=== PATIENT | female | born 1955 | race African-American/Black ===

== ENCOUNTER 2017-02-27 17:00 | Emergency (ER) | payer OTHER ==
[2017-02-27 17:04] VITALS: BP 149/96; PULSE 63; TEMP 98.8; BMI 33.5
--- NOTE | 2017-02-27 17:29 | PDOC ---
History of Present Illness - General Chief Complaint: Chest Pain Stated Complaint: SENT BY PCP Time Seen by Provider: 02/27/17 17:22 History Source: Patient - History of Present Illness Presenting Symptoms: Chest Pain Timing/Duration: reports: constant Severity/Quality: reports: moderate Location: reports: other (L chest) Chest Pain Radiation: reports: no radiation Past History - Past Medical History Allergies/Adverse Reactions: Allergies Allergy/AdvReac Type Severity Reaction Status Date / Time No Known Allergies Allergy Verified 02/27/17 17:04 Home Medications: Ambulatory Orders Naproxen [Naprosyn -] 500 mg PO BID PRN #30 tablet 02/18/16 Tramadol HCl [Ultram] 50 mg PO TID PRN #10 tablet MDD 3 02/18/16 Thyroid Disease: Yes Other medical history: NONE - Surgical History Appendectomy: Yes - Immunization History Immunization Up to Date: Yes - Psycho/Social/Smoking Cessation Hx Anxiety: No Suicidal Ideation: No Smoking Status: No Smoking History: Never smoked Have you smoked in the past 12 months: No Number of Cigarettes Smoked Daily: 0 Hx Alcohol Use: No Drug/Substance Use Hx: No Substance Use Type: None Review of Systems - Review of Systems Constitutional: No: Chills, Fever Respiratory: No: Cough, Shortness of Breath Cardiac (ROS): Yes: Chest Pain. No: Lightheadedness, Palpitations, Syncope *Physical Exam - Vital Signs Last Vital Signs Temp Pulse Resp BP Pulse Ox 98.8 F 63 20 149/96 99 02/27/17 17:01 02/27/17 17:01 02/27/17 17:01 02/27/17 17:01 02/27/17 17:01 - Physical Exam General Appearance: Yes: Appropriately Dressed. No: Apparent Distress HEENT: positive: Normal Voice Neck: positive: Supple Respiratory/Chest: positive: Lungs Clear, Normal Breath Sounds. negative: Respiratory Distress Cardiovascular: positive: Regular Rate, S1, S2 Gastrointestinal/Abdominal: positive: Soft. negative: Tender Integumentary: positive: Dry, Warm Neurologic: positive: Fully Oriented, Alert, Normal Mood/Affect Heart Score/ECG Review - History History: Slightly suspicious - Electrocardiogram EKG: Non specific repolarization disturbance - Age Age: 45-65 - Risk Factors Risk Factors Heart Score: Yes Hx Obesity Based on the list above the patient has:: 1-2 risk factors - Troponin Troponin: </= normal limit - Score Heart Score - Total: 3 - ECG Intrepretation Comment:: 02/27/17 17:35 NSR @ 63 bpm w/ no significant ST/T wave changes, intervals and axis wnl ED Treatment Course - LABORATORY CBC & Chemistry Diagram: 02/27/17 17:56 02/27/17 17:56 - ADDITIONAL ORDERS Additional order review: Laboratory Results 02/27/17 02/27/17 02/27/17 17:56 17:28 17:28 Sodium 140 Potassium 3.9 Chloride 104 Carbon Dioxide 27 Anion Gap 9 BUN 13 Creatinine 0.9 Creat Clearance w eGFR > 60 Random Glucose 90 Calcium 9.5 Total Bilirubin 0.7 D AST 27 ALT 24 Alkaline Phosphatase 122 H D Creatine Kinase 508 H Troponin I < 0.02 B-Natriuretic Peptide 59.51 Total Protein 7.6 Albumin 4.1 Urine Color Yellow Urine Appearance Clear Urine pH 5.0 Urine Protein Negative Urine Glucose (UA) Negative Urine Ketones Negative Urine Blood Negative Urine Nitrite Negative Urine Bilirubin Negative Urine Urobilinogen Negative Ur Leukocyte Esterase Negative 02/27/17 17:56 RBC 4.54 MCV 89.2 MCHC 33.1 RDW 13.3 MPV 8.9 Neutrophils % 47.2 Lymphocytes % 39.2 Monocytes % 4.9 Eosinophils % 8.0 H Basophils % 0.7 - RADIOLOGY Radiology Studies Ordered: Category Date Time Status CHEST X-RAY PORTABLE* [RAD] Stat Radiology 02/27/17 17:06 Taken - Medications Given in the ED: ED Medications Discontinued Medications Generic Name Dose Route Start Last Admin Trade Name Freq PRN Reason Stop Dose Admin Aspirin 325 mg 02/27/17 17:36 02/27/17 17:54 Asa - PO 02/27/17 17:37 325 mg ONCE ONE Administration Medical Decision Making - Medical Decision Making 02/27/17 17:27 61-year-old female, denies any past medical history, non-smoker, presents with chest pain. Patient reports left-sided, non-radiating chest pain x several days, described as heaviness, constant, with an intensity of 8 out of 10, and no exacerbating or alleviating factors. No shortness of breath, diaphoresis, nausea, vomiting, palpitations, or leg pain or swelling. No history of similar pain. No obvious risk factors for DVT/ PE. Went to [facility] today and had a normal EKG per patient, but told to come to ED to rule out ACS. Patient's last stress test was in 2012 and was negative See exam CP Not great story for ACS No RF for DVT/PE Unlikely dissection -ekg -cxr -labs -dispo pending 02/27/17 17:34 02/27/17 17:37 02/27/17 18:14 Case d/w ED attg, states given low heart score, if labs neg (will get 1 trop given duration of sxs), ok to discharge pt w/ PMD f/u 02/27/17 18:31 Labs unremarkable. Pt remains stable and chest pain free at this time. Dc w/ pmd f/u 02/27/17 18:33 *DC/Admit/Observation/Transfer Diagnosis at time of Disposition: Chest pain Qualifiers: Chest pain type: unspecified Qualified Code(s): R07.9 - Chest pain, unspecified - Discharge Dispostion Condition at time of disposition: Improved - Referrals Referrals: Shola Clark MD [Primary Care Provider] - - Patient Instructions Printed Discharge Instructions: DI for Atypical Chest Pain Additional Instructions: Your ekg and labs were normal today. Follow up with your PMD for further evaluation Return to ED for worsening of symptoms
[2017-02-27] MEDS ORDERED: ASPIRIN 325 MG TABLET PO ONE (17:36)
[2017-02-27] MEDS ORDERED: ASPIRIN 325 MG TABLET ONE (17:50)
[2017-02-27 17:51] LABS: URINE APPEARANCE CLEAR; URINE BILIRUBIN NEGATIVE (NEGATIVE); URINE BLOOD NEGATIVE (NEGATIVE); URINE COLOR YELLOW; URINE GLUCOSE (UA) NEGATIVE (NEGATIVE); URINE KETONE NEGATIVE (NEGATIVE); URINE LEUK ESTERASE NEGATIVE (NEGATIVE); URINE NITRITE NEGATIVE (NEGATIVE); URINE PROTEIN NEGATIVE (NEGATIVE); URINE UROBILINOGEN NEGATIVE mg/dL (0.2-1.0)
[2017-02-27 18:05] LABS: BASOPHIL 0.7 % (0-2.0); MCH 29.5 pg (25.7-33.7); MCHC 33.1 g/dl (32.0-36.0); MEAN CELL VOLUME 89.2 fl (80-96); MEAN PLT VOLUME 8.9 fl (7.5-11.1); NEUTROPHILS 47.2 % (42.8-82.8); PLATELET COUNT 212 K/MM3 (134-434); RDW 13.3 % (11.6-15.6); WHITE BLOOD COUNT 5.2 K/mm3 (4.0-10.0)
[2017-02-27 18:26] LABS: ALBUMIN 4.1 g/dl (3.4-5.0); ANION GAP 9 (8-16); BILIRUBIN,TOTAL 0.7 mg/dL (0.2-1.0); CALCIUM 9.5 mg/dL (8.5-10.1); CO2 27 mmol/L (21-32); CREATININE 0.9 mg/dL (0.55-1.02); GLUCOSE,RANDOM 90 mg/dL (74-106); SGOT/AST 27 U/L (15-37); SGPT/ALT 24 U/L (12-78); TOT PROT 7.6 g/dl (6.4-8.2)
[2017-02-27 18:28] LABS: ALK PHOS 122 U/L (45-117); CPK 508 IU/L (26-192); TROPONIN I < 0.02 ng/ml (0.00-0.05)
--- NOTE | 2017-02-28 12:15 | EKG ---
Test Reason : Blood Pressure : / mmHG Vent. Rate : 063 BPM Atrial Rate : 063 BPM P-R Int : 174 ms QRS Dur : 080 ms QT Int : 406 ms P-R-T Axes : 042 010 034 degrees QTc Int : 415 ms NORMAL SINUS RHYTHM CANNOT RULE OUT INFERIOR INFARCT , AGE UNDETERMINED ABNORMAL ECG WHEN COMPARED WITH ECG OF 12-FEB-2013 04:18, NONSPECIFIC T WAVE ABNORMALITY, IMPROVED IN ANTERIOR LEADS Confirmed by ZULLY CRUZ MD ([id number]) on 02/28/2017 12:15:10 PM Referred By: Confirmed By:ZULLY CRUZ MD
== END 2017-02-27 18:35 | disposition home or self-care (01) ==
LOC: JER 17:00
DX: R07.9 Chest pain, unspecified (principal)
CPT/HCPCS: 36415; 71010-TC; 80053; 81003; 83880; 84484; 85025; 93005; 93010; 99282-25

== ENCOUNTER 2017-05-07 22:53 | Emergency (ER) | payer OTHER ==
[2017-05-07 23:05] VITALS: BP 157/82; PULSE 86; TEMP 98.7; BMI 33.5
--- NOTE | 2017-05-08 00:08 | PDOC ---
History of Present Illness <Fer Guerrero - Last Filed: 05/08/17 01:56> - General History Source: Patient Exam Limitations: No Limitations - History of Present Illness Initial Comments: 05/08/17 04:16 The patient is a 61 year old female with no significant past medical history who presents to the ED with complaints of lightheadedness for 3 days. The patient reports intermittent lightheaded that is worsened when she stands and walks. It lasts for several seconds before resolving. Patient describes her lightheadedness like she is on a boat and off balance. She also reports left ear ringing associated with presents symptoms. She states her blood pressure has been high in the past 3 days, around 140/80. Patient reports recent cold like symptoms and took advil cold and sinus with relief. Denies nausea, vomiting, or diarrhea. Denies vision changes. Denies dysuria or changes in urinary output. Denies shortness of breath, chest pain or palpitations. Denies any other symptoms. <Sadia Irby - Last Filed: 05/08/17 04:17> - General Chief Complaint: Lightheaded Stated Complaint: DIZZINESS Time Seen by Provider: 05/07/17 23:48 Past History - Past Medical History Thyroid Disease: Yes Other medical history: Pt denies - Surgical History Appendectomy: Yes - Immunization History Immunization Up to Date: Yes - Suicide/Smoking/Psychosocial Hx Smoking Status: No Smoking History: Never smoked Have you smoked in the past 12 months: No Number of Cigarettes Smoked Daily: 0 Information on smoking cessation initiated: No Hx Alcohol Use: No Drug/Substance Use Hx: No Substance Use Type: None <Fer Guerrero - Last Filed: 05/08/17 01:56> <Sadia Irby - Last Filed: 05/08/17 04:17> - Past Medical History Allergies/Adverse Reactions: Allergies Allergy/AdvReac Type Severity Reaction Status Date / Time No Known Allergies Allergy Verified 05/07/17 23:02 Home Medications: Ambulatory Orders NK [No Known Home Medication] 05/08/17 Review of Systems - Review of Systems Able to Perform ROS?: Yes Comments:: 05/08/17 04:16 CONSTITUTIONAL: No reported: Fever, Chills, Diaphoresis, Generalized Weakness, Malaise, Loss of Appetite HEENT: + ringing in ear No reported: Rhinorrhea, Nasal Congestion, Throat Pain, Throat Swelling, Difficulty Swallowing, Mouth Swelling, Ear Pain, Eye Pain, Visual Changes CARDIOVASCULAR: + high blood pressure No reported: Chest Pain, Syncope, Palpitations, Irregular Heart Rate, Lightheadedness, Peripheral Edema RESPIRATORY: No reported: Cough, Shortness of Breath, SOB with Exertion, Orthopnea, Wheezing , Stridor, Hemoptysis GASTROINTESTINAL: No reported: Abdominal pain, Abdominal Distension, Nausea, Vomiting, Diarrhea, Constipation, Melena, Hematochezia GENITOURINARY: No reported: Dysuria, Frequency, Urgency, Hesitancy, Flank Pain, Genital Pain MUSCULOSKELETAL: No reported: Myalgia, Arthralgia, Joint Swelling, Back pain, Neck Pain SKIN: No reported: Rash, Itching, Pallor HEMEATOLOGIC/IMMUNOLOGIC: No reported: Easy Bleeding, Easy Bruising, Lymphadenopathy, Frequent infections ENDOCRINE: No reported: Unexplained Weight Gain, Unexplained Weight Loss, Heat Intolerance , Cold Intolerance NEUROLOGIC: + lightheadedness No reported: Headache, Focal Weakness, Paresthesias, Vertigo, unsteady Gait, Seizure, Mental Status Changes, Incontinence PSYCHIATRIC: No reported: Anxiety, Depression All Other Systems: Reviewed and Negative <Sadia Irby - Last Filed: 05/08/17 04:17> *Physical Exam - Vital Signs Last Vital Signs Temp Pulse Resp BP Pulse Ox 98.7 F 86 18 157/82 100 05/07/17 23:02 05/07/17 23:02 05/07/17 23:02 05/07/17 23:02 05/07/17 23:02 <Fer Guerrero - Last Filed: 05/08/17 01:56> - Vital Signs Last Vital Signs Temp Pulse Resp BP Pulse Ox 98.7 F 86 18 157/82 100 05/07/17 23:02 05/07/17 23:02 05/07/17 23:02 05/07/17 23:02 05/07/17 23:02 - Physical Exam Comments: 05/08/17 04:17 GENERAL: The patient is awake, alert, and fully oriented, Nontoxic - in no acute distress. HEAD: Normocephalic, atraumatic. EYES: extraocular movements intact, sclera anicteric, conjunctiva clear. No nystagmus. ENT: Normal voice, Moist mucous membranes. NECK: Normal range of motion, supple LUNGS: Breath sounds equal, clear to auscultation bilaterally. No wheezes, no rhonchi, no rales. HEART: Regular rate and rhythm, without murmur, rub or gallop. ABDOMEN: Soft, nontender, normoactive bowel sounds. No guarding, no rebound.No CVA tenderness EXTREMITIES: Normal range of motion, no edema. No clubbing or cyanosis. No cords, erythema, or tenderness. NEUROLOGICAL: No facial assymetry, Normal speech. Normal rapid alternating movement. Normal finger to nose. PSYCH: Normal mood, normal affect. SKIN: Warm, Dry, normal turgor, <Sadia Irby - Last Filed: 05/08/17 04:17> Heart Score/ECG Review - ECG Impressions Comment:: 05/08/17 01:54 Twelve-lead EKG was performed and reviewed by me. There is normal sinus rhythm with a normal rate. rate of 63 The axis is normal. pvs present <Fer Guerrero - Last Filed: 05/08/17 01:56> ED Treatment Course - LABORATORY CBC & Chemistry Diagram: 05/08/17 00:40 05/08/17 00:40 <Fer Guerrero - Last Filed: 05/08/17 01:56> - LABORATORY CBC & Chemistry Diagram: 05/08/17 00:40 05/08/17 00:40 - ADDITIONAL ORDERS Additional order review: Laboratory Results 05/08/17 00:40 Sodium 143 Potassium 4.2 Chloride 109 H Carbon Dioxide 24 Anion Gap 10 BUN 16 D Creatinine 0.8 Creat Clearance w eGFR > 60 Random Glucose 97 Calcium 9.0 Total Bilirubin 0.4 D AST 27 ALT 23 Alkaline Phosphatase 110 Total Protein 7.2 Albumin 3.7 05/08/17 00:40 RBC 4.30 MCV 90.8 MCHC 33.0 RDW 13.5 MPV 9.0 Neutrophils % 50.3 Lymphocytes % 34.8 Monocytes % 6.1 Eosinophils % 7.8 H Basophils % 1.0 - Medications Given in the ED: ED Medications Discontinued Medications Generic Name Dose Route Start Last Admin Trade Name Freq PRN Reason Stop Dose Admin Sodium Chloride 1,000 mls @ 1,000 mls/hr 05/08/17 00:29 05/08/17 00:58 Normal Saline - IV 05/08/17 01:28 1,000 mls/hr .Q1H ONE Administration <Sadia Irby - Last Filed: 05/08/17 04:17> Medical Decision Making - Medical Decision Making 05/08/17 00:54 61y F no pmhx presents with complaint of dizziness. Pt endorses intermittent episodes of dizziness typically when she is standing up or when she is walking, lasting for seconds. no associated vision changes, numbness/tingling/weakness, n /v, palpitations, cp, sob. on exam the pt is well appearing no distress, unremarkable exam including negative cerebellar findings and normal neuro exam. negative aarti hallpike differential includes possible anemia, metoblic derangement, arrythmia, peripheral vertigo, dehydration will ck labs will give fluids will reassess A portion of this note was documented by scribe services under my direction. I have reviewed the details of the note, within reason, and agree with the documentation with the following case summary and management plan written by me 05/08/17 01:53 labs reviewed and is unremarakble pt feeling improved apm sypmtomatic will dc the pt with pmd fu I discussed the physical exam findings, ancillary test results and final diagnoses with the patient. I answered all of the patient's questions. The patient was satisfied with the care received and felt comfortable with the discharge plan and treatment plan. The patient will call their primary care physician within 24 hours to arrange follow-up and will return to the Emergency Department with any new, persistent or worsening symptoms. <Fer Guerrero - Last Filed: 05/08/17 01:56> *DC/Admit/Observation/Transfer - Discharge Dispostion Admit: No <Fer Guerrero - Last Filed: 05/08/17 01:56> - Attestations Scribe Attestion: 05/08/17 04:17 Documentation prepared by Sadia Irby, acting as medical attendant for Fer Guerrero MD <Sadia Irby - Last Filed: 05/08/17 04:17> Diagnosis at time of Disposition: Lightheaded - Discharge Dispostion Disposition: HOME Condition at time of disposition: Improved - Referrals Referrals: Gil Clark MD [Primary Care Provider] - - Patient Instructions Printed Discharge Instructions: DI for Muscle Weakness Additional Instructions: Return to the emergency department immediately with ANY new, persistent or worsening symptoms. You MUST call and follow up with your doctor tomorrow for further evaluation of your symptoms. Results were discussed with you. Please make sure your doctor reviews the results of your emergency evaluation. If you had any xrays during your visit, it was read preliminarily by myself, a Radiologist will review it and if there are any additional findings we will call you. Print Language: CITIZEN OF [place]
[2017-05-08] MEDS ORDERED: SODIUM CHLORIDE 1,000 ML IV ONE (00:29)
[2017-05-08 00:52] LABS: EOSINOPHIL 7.8 % (0-4.5); MEAN CELL VOLUME 90.8 fl (80-96); NEUTROPHILS 50.3 % (42.8-82.8); PLATELET COUNT 235 K/MM3 (134-434); RDW 13.5 % (11.6-15.6); WHITE BLOOD COUNT 7.5 K/mm3 (4.0-10.0)
[2017-05-08 01:19] LABS: ALBUMIN 3.7 g/dl (3.4-5.0); ALK PHOS 110 U/L (45-117); ANION GAP 10 (8-16); BILIRUBIN,TOTAL 0.4 mg/dL (0.2-1.0); CO2 24 mmol/L (21-32); CREATININE 0.8 mg/dL (0.55-1.02); GLUCOSE,RANDOM 97 mg/dL (74-106); SGPT/ALT 23 U/L (12-78); TOT PROT 7.2 g/dl (6.4-8.2)
[2017-05-08 01:20] LABS: SGOT/AST 27 U/L (15-37)
--- NOTE | 2017-05-08 15:50 | EKG ---
Test Reason : Blood Pressure : / mmHG Vent. Rate : 063 BPM Atrial Rate : 063 BPM P-R Int : 138 ms QRS Dur : 080 ms QT Int : 386 ms P-R-T Axes : 035 012 027 degrees QTc Int : 395 ms SINUS RHYTHM WITH OCCASIONAL PREMATURE VENTRICULAR COMPLEXES BASELINE ARTIFACT SLOW R WAVE PROGRESSION V1-V4 ABNORMAL ECG WHEN COMPARED WITH ECG OF 27-FEB-2017 17:18, PREMATURE VENTRICULAR COMPLEXES ARE NOW PRESENT CORRELATE CLINICALLY Confirmed by BRANDEN MERRITT MD ([id number]) on 05/08/2017 3:50:41 PM Referred By: Confirmed By:BRANDEN MERRITT MD
== END 2017-05-08 02:11 | disposition home or self-care (01) ==
LOC: JER 22:53
PROC: 3E0337Z Introduction of Electrolytic and Water Balance Substance into Peripheral Vein, Percutaneous Approach (ICD-10-PCS; principal; 2017-05-07)
DX: R42 Dizziness and giddiness (principal); E07.9 Disorder of thyroid, unspecified
CPT/HCPCS: 36415; 80053; 85025; 93005; 93010; 99283-25

== ENCOUNTER 2017-11-07 16:27 | Emergency (ER) | payer OTHER ==
--- NOTE | 2017-11-07 16:38 | PDOC ---
Rapid Medical Evaluation Time Seen by Provider: 11/07/17 16:33 Medical Evaluation: Allergies Allergy/AdvReac Type Severity Reaction Status Date / Time No Known Allergies Allergy Verified 05/07/17 23:02 11/07/17 16:34 Pt seen in ER with c/o chest pain since yesterday morning, no n,v,d left arm radiation of pain sharp pain midsternal 04/10 took asa 325 mg prior to arrival order ekg, cxr, labs
[2017-11-07 16:43] VITALS: BMI 34.2
[2017-11-07 17:26] LABS: BASO % 1.2 % (0-2.0); EOS % 7.8 % (0-4.5); HEMATOCRIT 40.4 % (32.4-45.2); HEMOGLOBIN 13.7 GM/dL (10.7-15.3); LYMPH % 42.4 % (8-40); MCH 30.4 pg (25.7-33.7); MCHC 33.9 g/dl (32.0-36.0); MEAN CELL VOLUME 89.6 fl (80-96); MEAN PLT VOLUME 8.8 fl (7.5-11.1); MONO % 5.6 % (3.8-10.2); PLATELET COUNT 237 K/MM3 (134-434); RBC 4.51 M/mm3 (3.60-5.2); RDW 13.7 % (11.6-15.6); WHITE BLOOD COUNT 5.7 K/mm3 (4.0-10.0)
--- NOTE | 2017-11-07 17:32 | PDOC ---
History of Present Illness - General History Source: Patient Exam Limitations: No Limitations - History of Present Illness Initial Comments: 11/07/17 20:28 The patient is a 62 year old female with a significant PMH of hypertension, thyroid disease and Arthritis who presents to the emergency department with chest pain that began 1 day ago. The patient reports that she had a sudden onset of chest pain yesterday while she was at work sitting down. She report that her chest pain is persistent and radiates to her back. She states that her chest pain started in her mid chest then down her left arm and down to the center of her back. He describes her onset of chest pain as sharp and a moderate in severity when it began and she reports that it has remained at this level of pain since yesterday. She reports taking a baby aspirin last night with little relief. She reports associated and tingling in her left arm, fingers and back. The patient reports a non associated mild frontal headache today. She reports that she has not eaten since her chest pain began yesterday. The patient denies, shortness of breath, and dizziness. There is no worsening of the pts sypmtoms with exertion. She denies fever, chills, nausea, vomit, diarrhea , constipation or belly pain.She denies and cough, cold and recent travel. She Denies dysuria, frequency, urgency and hematuria. Allergies: NKA Past surgical history:Appendectomy Social history: No reported PCP: Dr. Clark <Avery Merchant - Last Filed: 11/07/17 20:28> <Fer Guerrero - Last Filed: 11/07/17 23:28> - General Chief Complaint: Chest Pain Stated Complaint: CHEST PAIN Time Seen by Provider: 11/07/17 16:33 Past History <Avery Merchatn - Last Filed: 11/07/17 20:28> - Past Medical History COPD: No Thyroid Disease: Yes - Surgical History Appendectomy: Yes - Immunization History Immunization Up to Date: Yes - Suicide/Smoking/Psychosocial Hx Smoking Status: No Smoking History: Never smoked Have you smoked in the past 12 months: No Number of Cigarettes Smoked Daily: 0 Information on smoking cessation initiated: No Hx Alcohol Use: No Drug/Substance Use Hx: No Substance Use Type: None <Fer Guerrero - Last Filed: 11/07/17 23:28> - Past Medical History Allergies/Adverse Reactions: Allergies Allergy/AdvReac Type Severity Reaction Status Date / Time No Known Allergies Allergy Verified 11/07/17 16:43 Home Medications: Ambulatory Orders NK [No Known Home Medication] 05/08/17 Review of Systems - Review of Systems Able to Perform ROS?: Yes Comments:: 11/07/17 20:29 CONSTITUTIONAL: No reported: Fever, Chills, Diaphoresis, Generalized Weakness, Malaise, Loss of Appetite HEENT: No reported: Rhinorrhea, Nasal Congestion, Throat Pain, Throat Swelling, Difficulty Swallowing, Mouth Swelling, Ear Pain, Eye Pain, Visual Changes CARDIOVASCULAR: Reported(+) Chest pain No reported: Syncope, Palpitations, Irregular Heart Rate, Lightheadedness, Peripheral Edema RESPIRATORY: No reported: Cough, Shortness of Breath, SOB with Exertion, Orthopnea, Wheezing , Stridor, Hemoptysis GASTROINTESTINAL: No reported: Abdominal pain, Abdominal Distension, Nausea, Vomiting, Diarrhea, Constipation, Melena, Hematochezia GENITOURINARY: No reported: Dysuria, Frequency, Urgency, Hesitancy, Flank Pain, Genital Pain MUSCULOSKELETAL: Reported (+) associated back pain No reported: Myalgia, Arthralgia, Joint Swelling, Neck Pain SKIN: No reported: Rash, Itching, Pallor HEMEATOLOGIC/IMMUNOLOGIC: No reported: Easy Bleeding, Easy Bruising, Lymphadenopathy, Frequent infections ENDOCRINE: No reported: Unexplained Weight Gain, Unexplained Weight Loss, Heat Intolerance , Cold Intolerance NEUROLOGIC: Reported (+) headache No reported: Focal Weakness, Paresthesias, Vertigo, Lightheadedness, Unsteady Gait, Seizure, Mental Status Changes, Incontinence PSYCHIATRIC: No reported: Anxiety, Depression <Mayur,Collisia - Last Filed: 11/07/17 20:28> *Physical Exam - Vital Signs Last Vital Signs Temp Pulse Resp BP Pulse Ox 98.3 F 64 18 122/60 97 11/07/17 16:35 11/07/17 18:10 11/07/17 18:10 11/07/17 16:35 11/07/17 18:10 - Physical Exam Comments: 11/07/17 20:29 GENERAL: The patient is awake, alert, and fully oriented, Nontoxic - in no acute distress. HEAD: Normocephalic, atraumatic. EYES: extraocular movements intact, sclera anicteric, conjunctiva clear. ENT: Normal voice, Moist mucous membranes. NECK: Normal range of motion, supple LUNGS: Breath sounds equal, clear to auscultation bilaterally. No wheezes, no rhonchi, no rales. HEART: Regular rate and rhythm, normal S1 and S2 without murmur, rub or gallop. ABDOMEN: Soft, nontender, normoactive bowel sounds. No guarding, no rebound. . No CVA tenderness EXTREMITIES: Normal range of motion, trace edema. radial pulse symmetric b/l NEUROLOGICAL: No facial assymetry, Normal speech, PSYCH: Normal mood, normal affect. SKIN: Warm, Dry, normal turgor, <MayurColldexter - Last Filed: 11/07/17 20:28> - Vital Signs Last Vital Signs Temp Pulse Resp BP Pulse Ox 98.3 F 79 18 122/60 100 11/07/17 16:35 11/07/17 16:35 11/07/17 16:35 11/07/17 16:35 11/07/17 16:35 <Fer Guerrero - Last Filed: 11/07/17 23:28> Heart Score/ECG Review - History History: Slightly suspicious - Electrocardiogram EKG: Non specific repolarization disturbance - Age Age: 45-65 - Risk Factors Risk Factors Heart Score: Yes Hx Hypertension Based on the list above the patient has:: 1-2 risk factors - Troponin Troponin: </= normal limit - Score Heart Score - Total: 3 - ECG Impressions Comment:: 11/07/17 20:48 Twelve-lead EKG was performed and reviewed by me. There is normal sinus rhythm with a normal rate. Rate of 71 The intervals are normal. nonspecific st wave changes <YolandaFer - Last Filed: 11/07/17 23:28> ED Treatment Course - LABORATORY CBC & Chemistry Diagram: 11/07/17 17:13 11/07/17 17:13 - ADDITIONAL ORDERS Additional order review: Laboratory Results 11/07/17 11/07/17 17:13 17:13 PT with INR 11.50 INR 1.02 PTT (Actin FS) 32.1 Sodium 138 Potassium 3.9 Chloride 106 Carbon Dioxide 27 Anion Gap 5 L BUN 16 Creatinine 1.0 Creat Clearance w eGFR 56.18 Random Glucose 108 H Calcium 9.0 Total Bilirubin 0.3 D AST 28 ALT 27 Alkaline Phosphatase 121 H Creatine Kinase 598 H Creatine Kinase Index 0.2 CK-MB (CK-2) 1.562 Troponin I < 0.02 Total Protein 7.7 Albumin 3.9 11/07/17 17:13 RBC 4.51 MCV 89.6 MCHC 33.9 RDW 13.7 MPV 8.8 Neutrophils % 43.0 Lymphocytes % 42.4 H D Monocytes % 5.6 Eosinophils % 7.8 H Basophils % 1.2 <Avery Merchant - Last Filed: 11/07/17 20:28> - LABORATORY CBC & Chemistry Diagram: 11/07/17 17:13 11/07/17 17:13 - ADDITIONAL ORDERS Additional order review: 11/07/17 17:13 RBC 4.51 MCV 89.6 MCHC 33.9 RDW 13.7 MPV 8.8 Neutrophils % 43.0 Lymphocytes % 42.4 H D Monocytes % 5.6 Eosinophils % 7.8 H Basophils % 1.2 <Fer Guerrero - Last Filed: 11/07/17 23:28> Medical Decision Making - Medical Decision Making 11/07/17 17:31 62y F hx of htn presents with cp x 1 day, onset at work yesterday, substernal, nonradiating, was 9/10 last night, took some ASA with some improvement. Pt states pain radiates to the back associated with some tingling in the arm. Pt denes any nausea/vomiting, sob, hemopytysis, nonexertional. pt endorses mild headache, decreased appetitei. on exam pt in no distress well appaering, radial pulses symmetric, +1 pedal edema b/l. atypical cp ddx includes acs, dissection, pancreatitis, msk pain low suspicion of dissection due to normal vitals and essentially normal exam no htn on pts vitals, her bp in either arm is symmetric and within 10 will ck cxr to r/o other secondry signs of dissection, ptx, pna will ck ekg and trops to screen for acs pat lgive asa, tylenol fluids will reassess A portion of this note was documented by scribe services under my direction. I have reviewed the details of the note, within reason, and agree with the documentation with the following case summary and management plan written by me 11/07/17 19:16 cxr wnl , no signs of widned mediastinum labs [id number], trops neg, but ck slightly elevated will repeat 11/07/17 23:26 trop neg pt feeling improved with resolution of her pain will dc with pmd fu return precautions were discussed I discussed the physical exam findings, ancillary test results and final diagnoses with the patient. I answered all of the patient's questions. The patient was satisfied with the care received and felt comfortable with the discharge plan and treatment plan. The patient will call their primary care physician within 24 hours to arrange follow-up and will return to the Emergency Department with any new, persistent or worsening symptoms. <Fer Guerrero - Last Filed: 11/07/17 23:28> *DC/Admit/Observation/Transfer - Attestations Scribe Attestion: 11/07/17 20:30 Documentation prepared by Avery Merchant, acting as medical coding auditor for Fer Guerrero MD. <Avery Merchant - Last Filed: 11/07/17 20:28> - Discharge Dispostion Admit: No <Fer Guerrero - Last Filed: 11/07/17 23:28> Diagnosis at time of Disposition: Chest pain Qualifiers: Chest pain type: unspecified Qualified Code(s): R07.9 - Chest pain, unspecified - Discharge Dispostion Disposition: HOME Condition at time of disposition: Improved - Referrals Referrals: Shola Clark MD [Primary Care Provider] - Lio Che MD [Staff Physician] - - Patient Instructions Printed Discharge Instructions: DI for Atypical Chest Pain Additional Instructions: Return to the emergency department immediately with ANY new, persistent or worsening symptoms. 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 Results were discussed with you. Please make sure your doctor reviews the results of your emergency evaluation. If you had any xrays during your visit, it was read preliminarily by myself, a Radiologist will review it and if there are any additional findings we will call you. Print Language: ESTONIAN - Post Discharge Activity
[2017-11-07 17:54] LABS: INR 1.02 (0.82-1.09); PROTHROMBIN TIME (PATIENT) 11.5 SEC (9.98-11.88)
[2017-11-07 17:57] LABS: ACTIVATED PTT 32.1 SECONDS (26.9-34.4)
[2017-11-07] MEDS ORDERED: ASPIRIN 81 MG CHEWABLE TABLETS PO ONE (18:12)
[2017-11-07] MEDS ORDERED: SODIUM CHLORIDE 1,000 ML IV ONE (18:12)
[2017-11-07] MEDS ORDERED: ACETAMINOPHEN 325 MG TABLET (FP) PO ONE (18:18)
[2017-11-07 18:45] LABS: ALBUMIN 3.9 g/dl (3.4-5.0); ANION GAP 5 (8-16); BLOOD UREA NITROGEN 16 mg/dL (7-18); CHLORIDE 106 mmol/L (98-107); CO2 27 mmol/L (21-32); GLUCOSE,RANDOM 108 mg/dL (74-106); POTASSIUM 3.9 mmol/L (3.5-5.1); SODIUM 138 mmol/L (136-145)
[2017-11-07 18:51] LABS: ALK PHOS 121 U/L (45-117); BILIRUBIN,TOTAL 0.3 mg/dL (0.2-1.0); SGOT/AST 28 U/L (15-37); SGPT/ALT 27 U/L (12-78); TOT PROT 7.7 g/dl (6.4-8.2)
[2017-11-07] MEDS ORDERED: morphine CARPU-JECT 8 MG/1 ML DISP.SYRIN IVPUSH ONE (21:24)
[2017-11-07] MEDS ORDERED: ACETAMINOPHEN 325 MG TABLET (FP) ONE (21:54)
[2017-11-07] MEDS ORDERED: ASPIRIN 81 MG CHEWABLE TABLETS ONE (21:54)
[2017-11-07] MEDS ORDERED: morphine SULFATE 4 MG/ML VIAL ONE (21:55)
[2017-11-07 23:40] VITALS: BP 125/67; PULSE 68; TEMP 98.1
--- NOTE | 2017-11-08 10:36 | EKG ---
Test Reason : Blood Pressure : / mmHG Vent. Rate : 071 BPM Atrial Rate : 071 BPM P-R Int : 156 ms QRS Dur : 078 ms QT Int : 390 ms P-R-T Axes : 051 -01 015 degrees QTc Int : 423 ms NORMAL SINUS RHYTHM CANNOT RULE OUT ANTERIOR INFARCT (CITED ON OR BEFORE 07-NOV-2017) ABNORMAL ECG WHEN COMPARED WITH ECG OF 08-MAY-2017 01:33, PREMATURE VENTRICULAR COMPLEXES ARE NO LONGER PRESENT Confirmed by MD Elliott, Aristides ([id number]) on 11/08/2017 10:35:38 AM Referred By: Confirmed By:Aristides Gallagher MD
== END 2017-11-07 23:40 | disposition home or self-care (01) ==
LOC: JER 16:27
DX: R07.9 Chest pain, unspecified (principal); I10 Essential (primary) hypertension; M12.9 Arthropathy, unspecified; E07.9 Disorder of thyroid, unspecified
CPT/HCPCS: 36415; 71045-TC-FY; 80053; 82550; 82553; 83690; 84484; 85025; 85610; 85730; 93005; 93010; 99282-25

== ENCOUNTER 2018-03-09 21:53 | Emergency (ER) | payer OTHER ==
[2018-03-09 22:14] VITALS: BP 149/78; PULSE 67; TEMP 97.9; BMI 35.6
--- NOTE | 2018-03-09 22:20 | PDOC ---
History of Present Illness - General Chief Complaint: Chest Pain Stated Complaint: CHEST PAIN Time Seen by Provider: 03/09/18 22:20 Past History - Past Medical History Allergies/Adverse Reactions: Allergies Allergy/AdvReac Type Severity Reaction Status Date / Time No Known Allergies Allergy Verified 03/09/18 22:01 Home Medications: Ambulatory Orders NK [No Known Home Medication] 05/08/17 COPD: No HTN: Yes Thyroid Disease: Yes - Surgical History Appendectomy: Yes - Immunization History Immunization Up to Date: Yes - Suicide/Smoking/Psychosocial Hx Smoking Status: No Smoking History: Never smoked Have you smoked in the past 12 months: No Number of Cigarettes Smoked Daily: 0 Information on smoking cessation initiated: No Hx Alcohol Use: No Drug/Substance Use Hx: No Substance Use Type: None *Physical Exam - Vital Signs Last Vital Signs Temp Pulse Resp BP Pulse Ox 97.9 F 67 18 149/78 100 03/09/18 21:55 03/09/18 21:55 03/09/18 21:55 03/09/18 21:55 03/09/18 21:55 *DC/Admit/Observation/Transfer - Referrals Referrals: Shola Clark MD [Primary Care Provider] - - Patient Instructions - Post Discharge Activity
[2018-03-09] MEDS ORDERED: ASPIRIN 81 MG CHEWABLE TABLETS PO ONE (22:21)
--- NOTE | 2018-03-09 22:24 | PDOC ---
History of Present Illness - General Chief Complaint: Chest Pain Stated Complaint: CHEST PAIN Time Seen by Provider: 03/09/18 22:20 History Source: Patient Exam Limitations: No Limitations - History of Present Illness Initial Comments: 03/09/18 23:37 62 year old female with a significant PMH of hypertension, thyroid disease and OsteoArthritis who presents to the emergency department with chest pain that began earlier. The pain in sharp, constant over the left side of the chest, some left arm and hand tingling. Complains that her right foot is swollen and that her leg is tender. Works 16h days where she is sitting most of the time. No recent travel or, immobilizations or surgery. Past History - Past Medical History Allergies/Adverse Reactions: Allergies Allergy/AdvReac Type Severity Reaction Status Date / Time No Known Allergies Allergy Verified 03/09/18 22:01 Home Medications: Ambulatory Orders NK [No Known Home Medication] 05/08/17 COPD: No HTN: Yes Thyroid Disease: Yes - Surgical History Appendectomy: Yes - Immunization History Immunization Up to Date: Yes - Suicide/Smoking/Psychosocial Hx Smoking Status: No Smoking History: Never smoked Have you smoked in the past 12 months: No Number of Cigarettes Smoked Daily: 0 Information on smoking cessation initiated: No Hx Alcohol Use: No Drug/Substance Use Hx: No Substance Use Type: None Review of Systems - Review of Systems Able to Perform ROS?: Yes Is the patient limited Hebrew proficient: No Constitutional: No: Symptoms Reported HEENTM: No: Symptoms Reported Respiratory: No: Symptoms reported Cardiac (ROS): Yes: Chest Pain ABD/GI: No: Symptoms Reported : No: Symptoms Reported Musculoskeletal: No: Symptoms Reported Integumentary: No: Symptoms Reported Neurological: No: Symptoms reported All Other Systems: Reviewed and Negative *Physical Exam - Vital Signs Last Vital Signs Temp Pulse Resp BP Pulse Ox 97.9 F 67 18 149/78 100 03/09/18 21:55 03/09/18 21:55 03/09/18 21:55 03/09/18 21:55 03/09/18 21:55 - Physical Exam General Appearance: Yes: Nourished, Appropriately Dressed. No: Apparent Distress HEENT: positive: EOMI, RYAN, Normal ENT Inspection Neck: negative: Tender Respiratory/Chest: positive: Lungs Clear, Normal Breath Sounds. negative: Chest Tender, Respiratory Distress Cardiovascular: positive: Regular Rhythm, Regular Rate, S1, S2 Gastrointestinal/Abdominal: positive: Normal Bowel Sounds, Flat, Soft. negative : Tender Musculoskeletal: positive: Normal Inspection. negative: CVA Tenderness Extremity: positive: Normal Capillary Refill, Normal Inspection, Normal Range of Motion, Pedal Edema (right foot) Integumentary: positive: Normal Color Neurologic: positive: Fully Oriented, Alert, Normal Mood/Affect ED Treatment Course - LABORATORY CBC & Chemistry Diagram: 03/09/18 23:43 03/09/18 23:43 - ADDITIONAL ORDERS Additional order review: Laboratory Results 03/09/18 03/09/18 03/09/18 23:43 23:43 23:43 PT with INR INR Sodium 140 Potassium 3.9 Chloride 104 Carbon Dioxide 28 Anion Gap 8 BUN 19 H Creatinine 1.0 Creat Clearance w eGFR 56.18 Random Glucose 92 Calcium 9.4 Magnesium 1.9 Total Bilirubin 0.3 AST 22 ALT 24 Alkaline Phosphatase 110 Creatine Kinase 448 H Troponin I < 0.02 B-Natriuretic Peptide 64.69 Total Protein 7.3 Albumin 3.8 TSH 2.57 03/09/18 23:43 PT with INR 11.60 INR 1.03 Sodium Potassium Chloride Carbon Dioxide Anion Gap BUN Creatinine Creat Clearance w eGFR Random Glucose Calcium Magnesium Total Bilirubin AST ALT Alkaline Phosphatase Creatine Kinase Troponin I B-Natriuretic Peptide Total Protein Albumin TSH 03/09/18 23:43 RBC 4.31 MCV 89.6 MCHC 34.3 RDW 13.5 MPV 9.1 Neutrophils % 45.2 Lymphocytes % 40.5 H Monocytes % 6.1 Eosinophils % 6.9 H Basophils % 1.3 - RADIOLOGY Radiology Studies Ordered: Category Date Time Status DUPLEX VASCUL US-1 LEG [US] Stat Ultrasound 03/10/18 22:49 Taken - Medications Given in the ED: ED Medications Discontinued Medications Generic Name Dose Route Start Last Admin Trade Name Freq PRN Reason Stop Dose Admin Aspirin 162 mg 03/09/18 22:21 03/09/18 23:42 Asa - PO 03/09/18 22:22 162 mg ONCE ONE Administration Medical Decision Making - Medical Decision Making 03/10/18 00:11 Multiple visit to the ER with the same symptoms. will check blood and compare to see evolution or change. ekg: Normal sinus rhythm with sinus arrhythmia. 03/10/18 01:10 All labsnegatuve. Venous doopler negative. Will discharge with follow up *DC/Admit/Observation/Transfer Diagnosis at time of Disposition: Atypical chest pain - Discharge Dispostion Disposition: HOME Condition at time of disposition: Improved Decision to Admit order: No - Referrals Referrals: Shola Clark MD [Primary Care Provider] - - Patient Instructions Printed Discharge Instructions: DI for Atypical Chest Pain Additional Instructions: Follow up with your primary care doctorr within 2-3 days. Come back to the Er for any new worsening or concerning symptom - Post Discharge Activity
--- NOTE | 2018-03-09 23:07 | PDOC ---
Attending Attestation - Resident Resident Name: Jarad Davis - ED Attending Attestation I have performed the following: I have examined & evaluated the patient, The case was reviewed & discussed with the resident, I agree w/resident's findings & plan, Exceptions are as noted - HPI HPI: 03/10/18 01:40 chest pain - Physicial Exam PE: 03/10/18 01:39 *Physical Exam General Appearance: Yes: Appropriately Dressed. No: Apparent Distress, Intoxicated HEENT: positive: EOMI, RYAN, Normal ENT Inspection, Normal Voice, TMs Normal, Pharynx Normal. negative: Pale Conjunctivae, Photophobia, Scleral Icterus (R), Scleral Icterus (L) Neck: positive: Trachea midline, Normal Thyroid, Supple. negative: Tender, Rigid, Carotid bruit, Stridor, Lymphadenopathy (R), Lymphadenopathy (L), Thyromegaly Respiratory/Chest: positive: Lungs Clear, Normal Breath Sounds. negative: Chest Tender, Respiratory Distress, Accessory Muscle Use, Labored Respiration, RES, Crackles, Rales, Rhonchi, Stridor, Wheezing, Dullness Cardiovascular: positive: Regular Rhythm, Regular Rate, S1, S2. negative: Edema , JVD, Murmur, Bradycardia, Tachycardia Vascular Pulses: Dorsalis-Pedis (R): 2+, Doralis-Pedis (L): 2+ Gastrointestinal/Abdominal: positive: Normal Bowel Sounds, Flat, Soft. negative : Tender, Organomegaly, Pulsatile Mass, Increased Bowel Sounds, Decreased BS, Distended, Guarding, Rebound, Hernia, Hepatomegaly, Spleenomegaly Lymphatic: negative: Adenopathy, Tenderness Musculoskeletal: positive: Normal Inspection. negative: CVA Tenderness, Decreased Range of Motion Extremity: positive: Normal Capillary Refill, Normal Inspection, Normal Range of Motion, Pelvis Stable. negative: Tender, Pedal Edema, Swelling, Erythema Integumentary: positive: Normal Color, Dry, Warm. negative: Cyanotic, Erythema , Jaundice, Rash Neurologic: positive: endoscopy support specialist II-XII NML intact, Fully Oriented, Alert, Normal Mood/ Affect, Motor Strength 5/5. negative: EOM Palsy, Facial Droop, Sensory Deficit - Medical Decision Making 03/10/18 01:40 Pt treated and released <Didier Rivera - Last Filed: 03/10/18 01:40> - HPI HPI: 03/10/18 02:17 The patient is a 62 year old female with a significant PMH of hypertension, thyroid disease, arthritis, and appendectomy who presents to the emergency department with left sided chest pain since earlier today. The patient states that she was outside walking earlier today when she began to feel an onset of left sided chest pain. She also reports some lower extremity swelling and pain. She states that she works sitting down using the computer. She denies any history of DVT or PE. She denies any recent travel. The patient denies any other symptoms. She denies any fever, chills, nausea, vomit, diarrhea , constipation or urinary symptoms. She denies shortness of breath, headache and dizziness. The patient denies any other complaints PCP: Dr. Clark Documentation prepared by Avery Merchant, acting as medical staff director for Didier Rivera DO. <Avery Merchant - Last Filed: 03/10/18 02:18>
[2018-03-09] MEDS ORDERED: ASPIRIN 81 MG CHEWABLE TABLETS ONE (23:35)
[2018-03-09 23:55] LABS: BASO % 1.3 % (0-2.0); EOS % 6.9 % (0-4.5); HEMATOCRIT 38.6 % (32.4-45.2); HEMOGLOBIN 13.2 GM/dL (10.7-15.3); LYMPH % 40.5 % (8-40); MCH 30.7 pg (25.7-33.7); MCHC 34.3 g/dl (32.0-36.0); MEAN CELL VOLUME 89.6 fl (80-96); MEAN PLT VOLUME 9.1 fl (7.5-11.1); MONO % 6.1 % (3.8-10.2); NEUT % 45.2 % (42.8-82.8); PLATELET COUNT 219 K/MM3 (134-434); RBC 4.31 M/mm3 (3.60-5.2); RDW 13.5 % (11.6-15.6); WHITE BLOOD COUNT 6.1 K/mm3 (4.0-10.0)
[2018-03-10 00:09] LABS: INR 1.03 (0.83-1.09); PROTHROMBIN TIME (PATIENT) 11.6 SEC (9.7-13.0)
[2018-03-10 00:33] LABS: ALBUMIN 3.8 g/dl (3.4-5.0); ANION GAP 8 (8-16); BILIRUBIN,TOTAL 0.3 mg/dL (0.2-1.0); BLOOD UREA NITROGEN 19 mg/dL (7-18); CALCIUM 9.4 mg/dL (8.5-10.1); CHLORIDE 104 mmol/L (98-107); CO2 28 mmol/L (21-32); GLUCOSE,RANDOM 92 mg/dL (74-106); MAGNESIUM 1.9 mg/dL (1.8-2.4); POTASSIUM 3.9 mmol/L (3.5-5.1); SGOT/AST 22 U/L (15-37); SGPT/ALT 24 U/L (12-78); SODIUM 140 mmol/L (136-145); TOT PROT 7.3 g/dl (6.4-8.2)
[2018-03-10 00:36] LABS: ALK PHOS 110 U/L (45-117)
--- NOTE | 2018-03-10 08:32 | EKG ---
Test Reason : Blood Pressure : / mmHG Vent. Rate : 064 BPM Atrial Rate : 064 BPM P-R Int : 168 ms QRS Dur : 084 ms QT Int : 394 ms P-R-T Axes : 053 016 046 degrees QTc Int : 406 ms NORMAL SINUS RHYTHM WITH SINUS ARRHYTHMIA NORMAL ECG WHEN COMPARED WITH ECG OF 07-NOV-2017 16:39, NO SIGNIFICANT CHANGE WAS FOUND Confirmed by JOE MIR MD ([id number]) on 03/10/2018 8:31:53 AM Referred By: Confirmed By:JOE MIR MD
== END 2018-03-10 02:06 | disposition home or self-care (01) ==
LOC: JER 21:53
DX: R07.89 Other chest pain (principal); I10 Essential (primary) hypertension; M19.90 Unspecified osteoarthritis, unspecified site; E07.9 Disorder of thyroid, unspecified
CPT/HCPCS: 36415; 80053; 82550; 82553; 83735; 83880; 84443; 84484; 85025; 85610; 93005; 93010; 93971-TC; 99284-25

== ENCOUNTER 2018-06-29 17:18 | Emergency (ER) | payer OTHER ==
[2018-06-29 17:35] VITALS: BP 146/77; PULSE 80; TEMP 98.2; BMI 35.4
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
[2018-06-29] MEDS ORDERED: IBUPROFEN 400 MG TABLET (FP) PO ONE ×2 (18:08→18:10)
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
== END 2018-06-29 18:26 | disposition home or self-care (01) ==
LOC: JERFT 17:18
DX: S39.012A Strain of muscle, fascia and tendon of lower back, initial encounter (principal); X50.1XXA Overexertion from prolonged static or awkward postures, initial encounter; Y93.89 Activity, other specified; Y92.118 Other place in children's home and orphanage as the place of occurrence of the external cause; Y99.0 Civilian activity done for income or pay; I10 Essential (primary) hypertension; E07.9 Disorder of thyroid, unspecified
CPT/HCPCS: 99281-25

== ENCOUNTER 2018-12-12 15:36 | Inpatient (IN) | payer OTHER ==
[2018-12-12 15:47] VITALS: BMI 35.6
--- NOTE | 2018-12-12 15:53 | PDOC ---
History of Present Illness - General Chief Complaint: Chest Pain Stated Complaint: CHEST PAIN Time Seen by Provider: 12/12/18 15:53 History Source: Patient Exam Limitations: No Limitations - History of Present Illness Initial Comments: 12/12/18 15:58 63 year old female with PMH HTN presented to ED for left sided chest pain since finding out her son today. Pt stated her pain is substernal, raditing to her neck, constant, no alleviating or aggravating factors. Pt admitted to headache. Pt denied shortness of breath, palpitations, increased lower extremity swelling, fever, chills, nausea, vomiting. Pt reported taking 2 ASA DEBURRER. Allergies: NKDA Past History - Past Medical History Allergies/Adverse Reactions: Allergies Allergy/AdvReac Type Severity Reaction Status Date / Time No Known Allergies Allergy Verified 12/12/18 15:40 Home Medications: Ambulatory Orders Amlodipine Besylate 5 mg PO ASDIR 06/29/18 Cyclobenzaprine HCl [Flexeril -] 10 mg PO TID PRN #21 tablet 06/29/18 Ibuprofen 800 mg PO TID PRN #20 tablet 06/29/18 COPD: No HTN: Yes Thyroid Disease: Yes - Surgical History Appendectomy: Yes - Immunization History Immunization Up to Date: Yes - Suicide/Smoking/Psychosocial Hx Smoking Status: No Smoking History: Never smoked Have you smoked in the past 12 months: No Number of Cigarettes Smoked Daily: 0 Hx Alcohol Use: No Drug/Substance Use Hx: No Substance Use Type: None Review of Systems - Review of Systems Able to Perform ROS?: Yes Comments:: 12/12/18 15:59 General: denied fever, chills, generalized weakness. HEENT: denied sore throat, rhinorrhea, ear pain. Heart: admitted to chest pain. denied palpitations, syncope, diaphoresis. Respiratory: denied shortness of breath, cough, sputum production, hemoptysis. Abdomen: denied abdominal pain, nausea, vomiting, diarrhea, constipation, blood in stool. : denied dysuria, increased urinary frequency, hematuria, urinary incontinence , flank pain. Back: denied back pain. Musculoskeletal: denied joint pain, muscle pain, joint swelling. Neurological: denied headache, dizziness, numbness, tingling, weakness. Skin: denied rash, laceration, abrasion. *Physical Exam - Vital Signs Last Vital Signs Temp Pulse Resp BP Pulse Ox 98.3 F 75 18 133/93 100 12/12/18 15:41 12/12/18 15:41 12/12/18 15:41 12/12/18 15:41 12/12/18 15:41 - Physical Exam Comments: 12/12/18 15:59 Constitutional: Well-nourished, Well-developed, appearing stated age. HEENT: head is normocephalic, atraumatic. EOMI. PERRLA. Neck: supple. Full ROM. Heart: regular rhythm. no murmurs, rubs or gallops. Lungs: clear to auscultation bilaterally. no crackles, rhonchi or wheezing. no stridor. Abdomen: soft, nontender. normal bowel sounds. no rebound, guarding, masses. Extremities: peripheral pulses intact. no lower extremity edema. Neurological: CN 2-12 grossly intact. 3+ LE swelling bilaterally. Psych: awake, alert, oriented x3. follows commands. answers questions appropriately. Constitutional: Well-nourished, Well-developed, appearing stated age. Heart Score/ECG Review - History History: Moderately suspicious - Electrocardiogram EKG: Normal - Age Age: 45-65 - Risk Factors Risk Factors Heart Score: Yes Hx Hypertension, Yes Hx Obesity - Troponin Troponin: </= normal limit ED Treatment Course - LABORATORY CBC & Chemistry Diagram: 12/12/18 16:53 12/12/18 16:53 Medical Decision Making - Medical Decision Making 12/12/18 15:59 63 year old female with PMH HTN presented to ED for chest pain after finding out her son today. Initial Vital Signs Temp Pulse Resp BP Pulse Ox 98.3 F 75 18 133/93 100 12/12/18 15:41 12/12/18 15:41 12/12/18 15:41 12/12/18 15:41 12/12/18 15:41 Afebrile. No tachycardia. No tachypnea. Mild hypertension. No hypoxia on room air. Labs ordered: CBC, CMP, Troponin, BNP Imaging ordered: CXR Medications ordered: ASA 162 chew EKG performed at 1604: rate 66, regular rhythm, normal axis, normal intervals, flat T V3/V4/V5/V6/aVF, flipped T III. Prior EKG comparison: flat T in III, otherwise no acute ST changes. 12/12/18 16:26 Pt is a hard stick. RN failed at IV line. I attempted IV guided line in left AC, which was unsuccessful. 12/12/18 16:56 2 additional attempts at US guided IV line by myself, the needle was visualized to be entering the lumen, flashback was observed, and labs were able to be drawn but the catheter was unable to be advanced and the lines were unable to be flushed. The catheters were removed. 12/12/18 17:55 CBC WBC 7.7 K/mm3 (4.0-10.0) 12/12/18 16:53 RBC 4.47 M/mm3 (3.60-5.2) 12/12/18 16:53 Hgb 13.4 GM/dL (10.7-15.3) 12/12/18 16:53 Hct 40.4 % (32.4-45.2) 12/12/18 16:53 MCV 90.3 fl (80-96) 12/12/18 16:53 MCH 29.9 pg (25.7-33.7) 12/12/18 16:53 MCHC 33.2 g/dl (32.0-36.0) 12/12/18 16:53 RDW 13.6 % (11.6-15.6) 12/12/18 16:53 Plt Count 252 K/MM3 (134-434) 12/12/18 16:53 MPV 8.8 fl (7.5-11.1) 12/12/18 16:53 Absolute Neuts (auto) 4.6 K/mm3 (1.5-8.0) 12/12/18 16:53 Neutrophils % 59.9 % (42.8-82.8) D 12/12/18 16:53 Lymphocytes % 31.8 % (8-40) D 12/12/18 16:53 Monocytes % 5.5 % (3.8-10.2) 12/12/18 16:53 Eosinophils % 2.4 % (0-4.5) 12/12/18 16:53 Basophils % 0.4 % (0-2.0) 12/12/18 16:53 Nucleated RBC % 0 % (0-0) 12/12/18 16:53 No leukocytosis. No anemia. INR, PTT INR 1.02 (0.83-1.09) 12/12/18 16:53 12/12/18 18:13 CMP Sodium 137 mmol/L (136-145) 12/12/18 16:53 Potassium 3.8 mmol/L (3.5-5.1) 12/12/18 16:53 Chloride 104 mmol/L (98-107) 12/12/18 16:53 Carbon Dioxide 24 mmol/L (21-32) 12/12/18 16:53 Anion Gap 8 MMOL/L (8-16) 12/12/18 16:53 BUN 13 mg/dL (7-18) 12/12/18 16:53 Creatinine 0.9 mg/dL (0.55-1.3) 12/12/18 16:53 Est GFR (CKD-EPI)AfAm 78.87 12/12/18 16:53 Est GFR (CKD-EPI)NonAf 68.05 12/12/18 16:53 Random Glucose 89 mg/dL (74-106) 12/12/18 16:53 Calcium 9.5 mg/dL (8.5-10.1) 12/12/18 16:53 Total Bilirubin 0.6 mg/dL (0.2-1) 12/12/18 16:53 AST 32 U/L (15-37) 12/12/18 16:53 ALT 26 U/L (13-61) 12/12/18 16:53 Alkaline Phosphatase 117 U/L (45-117) 12/12/18 16:53 Troponin I < 0.02 ng/ml (0.00-0.05) 12/12/18 16:53 B-Natriuretic Peptide 34.2 pg/ml (5-125) 12/12/18 16:53 Total Protein 7.8 g/dl (6.4-8.2) 12/12/18 16:53 Albumin 4.1 g/dl (3.4-5.0) 12/12/18 16:53 No electrolyte abnormalities. No AMY. No transaminitis. Troponin within normal limits. BNP normal. Pt informed of results and need for second troponin. Pt agrees with plan for care. 12/12/18 20:01 Pt continuing to have chest pain, decreased from 8/10 to 4/10. Will admit for observation. Repeat CXR my and Dr. Page' read: normal mediastinum. sharp costophrenic angles. no infiltrate. -Pending official report. 12/12/18 20:[address] Law about the patient. Pt to be admitted under observation for chest pain. *DC/Admit/Observation/Transfer Diagnosis at time of Disposition: Chest pain - Discharge Dispostion Condition at time of disposition: Stable Decision to Admit order: Yes - Referrals Referrals: hSola Clark MD [Primary Care Provider] - - Patient Instructions - Post Discharge Activity
[2018-12-12] MEDS ORDERED: ASPIRIN 81 MG CHEWABLE TABLETS PO ONE ×2 (16:00→16:25)
[2018-12-12] MEDS ORDERED: ASPIRIN 81 MG CHEWABLE TABLETS ONE (16:09)
[2018-12-12 17:29] LABS: BASO % 0.4 % (0-2.0); EOS % 2.4 % (0-4.5); HEMATOCRIT 40.4 % (32.4-45.2); HEMOGLOBIN 13.4 GM/dL (10.7-15.3); LYMPH % 31.8 % (8-40); MCH 29.9 pg (25.7-33.7); MCHC 33.2 g/dl (32.0-36.0); MEAN CELL VOLUME 90.3 fl (80-96); MEAN PLT VOLUME 8.8 fl (7.5-11.1); MONO % 5.5 % (3.8-10.2); NEUT % 59.9 % (42.8-82.8); PLATELET COUNT 252 K/MM3 (134-434); RBC 4.47 M/mm3 (3.60-5.2); RDW 13.6 % (11.6-15.6); WHITE BLOOD COUNT 7.7 K/mm3 (4.0-10.0)
[2018-12-12 17:41] LABS: INR 1.02 (0.83-1.09)
[2018-12-12 18:10] LABS: ALBUMIN 4.1 g/dl (3.4-5.0); ALK PHOS 117 U/L (45-117); ANION GAP 8 MMOL/L (8-16); BILIRUBIN,TOTAL 0.6 mg/dL (0.2-1); BLOOD UREA NITROGEN 13 mg/dL (7-18); CALCIUM 9.5 mg/dL (8.5-10.1); CHLORIDE 104 mmol/L (98-107); CO2 24 mmol/L (21-32); CREATININE 0.9 mg/dL (0.55-1.3); GLUCOSE,RANDOM 89 mg/dL (74-106); N-TERMINAL BNP 34.2 pg/ml (5-125); POTASSIUM 3.8 mmol/L (3.5-5.1); SGOT/AST 32 U/L (15-37); SGPT/ALT 26 U/L (13-61); SODIUM 137 mmol/L (136-145); TOT PROT 7.8 g/dl (6.4-8.2)
--- NOTE | 2018-12-12 18:59 | PDOC ---
Documentation entered by Maddy Villegas SCRIBE, acting as scribe for Augustine Linda MD. Augustine Linda MD: This documentation has been prepared by the christeBakari Victoria, SCRIBE, under my direction and personally reviewed by me in its entirety. I confirm that the documentation accurately reflects all work, treatment, procedures, and medical decision making performed by me. Attending Attestation - Resident Resident Name: Jyoti Roberts - ED Attending Attestation I have performed the following: I have examined & evaluated the patient, The case was reviewed & discussed with the resident, I agree w/resident's findings & plan, Exceptions are as noted - HPI HPI: 12/12/18 17:42 The patient is a 63 year old female with past medical history of hypertension, presents to the ED with chest pain and global headache after finding out her son today. She states she took two aspirin prior to arrival. Describes pain as a chest pressure. Reports hx similar sxs 1 year ago for which she had a stress test with her therapeutic recreation leader in [place] that was reportedly negative. REports family hx cardiac disease in her mother at an older age. Denies hx smoking. Denies drug use. Denies any associated palpitations, diaphoresis, shortness of breath, or loss of consciousness. REports headache came on gradually, but currently has resolved. - Physicial Exam PE: 12/12/18 18:56 GENERAL: Awake, alert, and fully oriented, in no acute distress EYES: PERRLA, EOMI, sclera anicteric, conjunctiva clear ENT: Nares patent, oropharynx clear without exudates. Moist mucosa NECK: Normal ROM, supple, no lymphadenopathy, JVD, or masses LUNGS: Breath sounds equal, clear to auscultation bilaterally. No wheezes, and no crackles HEART: Regular rate and rhythm, normal S1 and S2, no murmurs, rubs or gallops ABDOMEN: Soft, nontender, normoactive bowel sounds. No guarding, no rebound. No masses EXTREMITIES: Normal range of motion, no edema. No cords, erythema, or tenderness NEUROLOGICAL: Normal speech, cranial nerves intact, equal strength and sensation b/l SKIN: Warm, Dry, normal turgor, no rashes or lesions noted. - Medical Decision Making 12/12/18 18:59 63yo F hx HTN presents to the ED with LS chest pressure after learning that her son as well as resolved headache. Chest pressure improved in ED, but still present. Vitals and exam unremarkable. EKG unchanged compared to prior. HS is 3. Initial trop negative. Portable CXR with poor inspiratory effort , plan to obtain PA and lateral and rpt trop. Case signed out to overnight attending for f/u rpt trop, cxr, and dispo Heart Score/ECG Review - History History: Slightly suspicious - Electrocardiogram EKG: Non specific repolarization disturbance - Age Age: 45-65 - Risk Factors Based on the list above the patient has:: 1-2 risk factors - Troponin Troponin: </= normal limit - Score Heart Score - Total: 3 #1 12/12/18 18:51 Twelve-lead EKG was performed and reviewed by me. Normal sinus rhythm, rate 66. Normal axis. No ST elevations. Diffuse T-wave flattening V3 to V6 and II and aVF. Flipped T-wave in lead III. No significant change compared to prior
--- NOTE | 2018-12-12 20:32 | HP ---
CHIEF COMPLAINT: chest pain HISTORY OF PRESENT ILLNESS: 63 year old female with past medical history of hypertension presented to ED for left sided chest pain since finding out her son today. Patient stated her pain is substernal, radiating to her neck, constant, no alleviating or aggravating factors. Patient admitted to headache. Patient denied shortness of breath, palpitations, increased lower extremity swelling, fever, chills, nausea, vomiting. Patient took 2 aspirin at home. ER course was notable for: (1) negative troponin (2) normal EKG (3) Recent Travel: denies PAST MEDICAL HISTORY: hypertension PAST SURGICAL HISTORY: denies Social History: Smoking: denies Alcohol: denies Drugs: denies Family History: no hx of cardiac disease Allergies No Known Allergies Allergy (Verified 12/12/18 15:40) HOME MEDICATIONS: Home Medications Medication Instructions Recorded Amlodipine Besylate 5 mg PO ASDIR 06/29/18 Cyclobenzaprine HCl [Flexeril -] 10 mg PO TID PRN #21 tablet 06/29/18 Ibuprofen 800 mg PO TID PRN #20 tablet 06/29/18 REVIEW OF SYSTEMS CONSTITUTIONAL: Absent: fever, chills, diaphoresis, generalized weakness, malaise, loss of appetite, weight change HEENT: Absent: rhinorrhea, nasal congestion, throat pain, throat swelling, difficulty swallowing, mouth swelling, ear pain, eye pain, visual changes CARDIOVASCULAR: Absent: chest pain, syncope, palpitations, irregular heart rate, lightheadedness , peripheral edema RESPIRATORY: Absent: cough, shortness of breath, dyspnea with exertion, orthopnea, wheezing, stridor, hemoptysis GASTROINTESTINAL: Absent: abdominal pain, abdominal distension, nausea, vomiting, diarrhea, constipation, melena, hematochezia GENITOURINARY: Absent: dysuria, frequency, urgency, hesitancy, hematuria, flank pain, genital pain MUSCULOSKELETAL: Absent: myalgia, arthralgia, joint swelling, back pain, neck pain SKIN: Absent: rash, itching, pallor HEMATOLOGIC/IMMUNOLOGIC: Absent: easy bleeding, easy bruising, lymphadenopathy, frequent infections ENDOCRINE: Absent: unexplained weight gain, unexplained weight loss, heat intolerance, cold intolerance NEUROLOGIC: Absent: headache, focal weakness or paresthesias, dizziness, unsteady gait, seizure, mental status changes, bladder or bowel incontinence PSYCHIATRIC: Absent: anxiety, depression, suicidal or homicidal ideation, hallucinations. PHYSICAL EXAMINATION Vital Signs - 24 hr 12/12/18 15:41 Temperature 98.3 F Pulse Rate 75 Respiratory 18 Rate Blood Pressure 133/93 O2 Sat by Pulse 100 Oximetry (%) GENERAL: A&Ox3, no acute distress EYES: PERRLA, EOMI ENT: Moist mucus membranes NECK: No JVD LUNGS: CTA, no wheezes HEART: RRR, no murmurs ABDOMEN: Soft, nontender, BS present MUSCULOSKELETAL: No CVA Tenderness EXTREMITIES: 2+ pulses, no edema. NEUROLOGICAL: Cranial nerves II-XII intact. Laboratory Results - last 24 hr 12/12/18 12/12/18 12/12/18 16:53 16:53 16:53 WBC 7.7 RBC 4.47 Hgb 13.4 Hct 40.4 MCV 90.3 MCH 29.9 MCHC 33.2 RDW 13.6 Plt Count 252 MPV 8.8 Absolute Neuts (auto) 4.6 Neutrophils % 59.9 D Lymphocytes % 31.8 D Monocytes % 5.5 Eosinophils % 2.4 Basophils % 0.4 Nucleated RBC % 0 PT with INR 12.00 INR 1.02 PTT (Actin FS) 32.0 Sodium 137 Potassium 3.8 Chloride 104 Carbon Dioxide 24 Anion Gap 8 BUN 13 Creatinine 0.9 Est GFR (CKD-EPI)AfAm 78.87 Est GFR (CKD-EPI)NonAf 68.05 Random Glucose 89 Calcium 9.5 Total Bilirubin 0.6 AST 32 ALT 26 Alkaline Phosphatase 117 Troponin I < 0.02 B-Natriuretic Peptide 34.2 Total Protein 7.8 Albumin 4.1 ASSESSMENT/PLAN: 63 year old female with past medical history of hypertension presented to ED for left sided chest pain #Chest pain: likely psychosomatic due to trauma from losing her son, but will admit to rule out acute coronary syndrome -cardiology consulted -cardiac monitoring -echocardiogram to r/o cardiomyopathy -troponins negative #Hypertension: chronic -continue amlodipine 5 #FEN -no standing fluids -lytes normal -regular diet #Prophylaxis -early ambulation #Disposition -admit tele obs Visit type - Emergency Visit Emergency Visit: Yes ED Registration Date: 12/12/18 Care time: The patient presented to the Emergency Department on the above date and was hospitalized for further evaluation of their emergent condition. - New Patient This patient is new to me today: Yes Date on this admission: 12/12/18 - Critical Care Critical Care patient: No
--- NOTE | 2018-12-12 20:54 | PN ---
Teaching Attending Note Name of Resident: Moose Law ATTENDING PHYSICIAN STATEMENT I saw and evaluated the patient. I reviewed the resident's note and discussed the case with the resident. I agree with the resident's findings and plan as documented. SUBJECTIVE: Seen and examined; please see resident note for further historical details. Briefly, this is a 63 y/o AAF presenting to the ER with chest pain; the pain is similar to the pain she had over a year ago for which she had stress test at OSH which was reportedly negative (records pending). Pain today was associated with emotional stress and has resolved when I spoke to her; she was just informed that her son passed. No SOB, etc. Initial troponin was negative. 10 sys ROS done and negative aside from HPI PMH, PSH, FH, SH reviewed Home Medications Medication Instructions Recorded Amlodipine Besylate 5 mg PO ASDIR 06/29/18 Cyclobenzaprine HCl [Flexeril -] 10 mg PO TID PRN #21 tablet 06/29/18 Ibuprofen 800 mg PO TID PRN #20 tablet 06/29/18 OBJECTIVE: VS, labs, imaging reviewed NAD, AAO, resting comfortably in bed NC AT EOMI PERRLA RRR s1/2 no mgr Lungs CTAB, w/ sym exp NT ND +BS CN2-12 wnl, no fnd Normal mood, appropriate behavior EKG reviewed Echo pending ASSESSMENT AND PLAN: Patient presents for chest pain; negative workup 12+ months ago at OSH with reported negative stress 1) Chest Pain -Will r/o acs; monitor on telemetry, trend troponin. She does have some risk factors so can consider discussing stress test with CV in AM. Consider relation to emotional stressors. Checking echo for wma's. -Check TSH, A1c, lipids. -Drop Wire Aligner regarding obesity 2) HTN -Continue amlodipine; titrate dose as needed 3) Obesity (BMI 35) -Drop Wire Aligner prior to DC Full Code
[2018-12-12] MEDS ORDERED: diphenhydrAMINE HCL 25 MG CAPSULE (FP) PO ONE ×2 (22:05→23:02)
[2018-12-12] MEDS ORDERED: amLODIPine BESYLATE 5 MG TABLET (FP) ONE (23:37)
[2018-12-12] MEDS: amLODIPine BESYLATE 5 MG TABLET (FP) PO SCH (23:49)
[2018-12-13] MEDS ORDERED: NITROGLYCERIN SUBLINGUAL 1/150 0.4 MG TAB SL ONE (00:29)
[2018-12-13] MEDS ORDERED: NITROGLYCERIN SUBLINGUAL 1/150 0.4 MG TAB ONE (02:09)
[2018-12-13 05:54] LABS: HEMOGLOBIN 12.6 GM/dL (10.7-15.3); MCH 29.8 pg (25.7-33.7); MCHC 33.2 g/dl (32.0-36.0); MEAN CELL VOLUME 89.9 fl (80-96); MEAN PLT VOLUME 8.6 fl (7.5-11.1); PLATELET COUNT 245 K/MM3 (134-434); RBC 4.23 M/mm3 (3.60-5.2); RDW 13.5 % (11.6-15.6); WHITE BLOOD COUNT 6.3 K/mm3 (4.0-10.0)
[2018-12-13 06:17] LABS: ANION GAP 4 MMOL/L (8-16); BLOOD UREA NITROGEN 12 mg/dL (7-18); CALCIUM 9.1 mg/dL (8.5-10.1); CHLORIDE 107 mmol/L (98-107); CHOLESTEROL 187 mg/dL (50-200); CO2 26 mmol/L (21-32); CREATININE 0.8 mg/dL (0.55-1.3); GLUCOSE,RANDOM 92 mg/dL (74-106); HDL CHOLESTEROL 71 mg/dL (40-60); MAGNESIUM 2.4 mg/dL (1.8-2.4); POTASSIUM 3.9 mmol/L (3.5-5.1); SODIUM 137 mmol/L (136-145); TRIGLYCERIDES 82 mg/dL (0-150)
[2018-12-13] MEDS ORDERED: ASPIRIN 81 MG CHEWABLE TABLETS PO SCH (10:00)
[2018-12-13] MEDS: ASPIRIN COATED 81 MG TABLET.EC PO SCH (10:41)
[2018-12-13] MEDS: amLODIPine BESYLATE 5 MG TABLET (FP) PO SCH (10:42)
--- NOTE | 2018-12-13 10:49 | EKG ---
Test Reason : Blood Pressure : / mmHG Vent. Rate : 066 BPM Atrial Rate : 066 BPM P-R Int : 166 ms QRS Dur : 080 ms QT Int : 384 ms P-R-T Axes : 041 -02 -03 degrees QTc Int : 402 ms NORMAL SINUS RHYTHM WITH SINUS ARRHYTHMIA MINIMAL VOLTAGE CRITERIA FOR LVH, MAY BE NORMAL VARIANT CANNOT RULE OUT ANTERIOR INFARCT , AGE UNDETERMINED ABNORMAL ECG WHEN COMPARED WITH ECG OF 09-MAR-2018 22:15, T WAVE INVERSION NOW EVIDENT IN INFERIOR LEADS NONSPECIFIC T WAVE ABNORMALITY NOW EVIDENT IN ANTERIOR LEADS Confirmed by OSMANI GRIFFIN, REYNA ([id number]) on 12/13/2018 10:49:21 AM Referred By: Yonatan PHOENIX Confirmed By:REYNA KEEN MD
--- NOTE | 2018-12-13 13:53 | ECHO ---
Name: KILEY PEARCE Exam:Adult Echocardiogram Study Date: 12/13/2018 10:00 AM Age: 63 yrs Reason For Study: R/O ACS Height: 71 in Weight: 256 lb BSA: 2.3 m2 MMode/2D Measurements & Calculations IVSd: 0.86 cm Ao root diam: 2.5 cm LVIDd: 4.2 cm LA dimension: 3.6 cm LVPWd: 0.90 cm EDV(Teich): 79.9 ml LVOT diam: 2.0 cm Doppler Measurements & Calculations MV E max gaurav: 84.9 cm/sec Ao V2 max: 149.9 cm/sec MV A max gaurav: 77.5 cm/sec Ao max P.0 mmHg MV E/A: 1.1 Ao V2 mean: 100.8 cm/sec MV dec time: 0.18 sec Ao mean P.9 mmHg Ao V2 VTI: 30.9 cm AISSATOU(I,D): 1.9 cm2 AISSATOU(V,D): 1.9 cm2 LV V1 max P.0 mmHg SV(LVOT): 58.4 ml LV V1 mean P.6 mmHg LV V1 max: 86.2 cm/sec LV V1 mean: 59.0 cm/sec LV V1 VTI: 17.9 cm TR max gaurav: 147.0 cm/sec PI end-d gaurav: 118.8 cm/sec TR max P.6 mmHg Med Peak E' Gaurav: 11.7 cm/sec Med E/e': 7.3 Lat Peak E' Gaurav: 16.2 cm/sec Lat E/e': 5.2 Procedure A two-dimensional transthoracic echocardiogram with color flow and Doppler was performed. Left Ventricle The left ventricular size, thickness and function are normal. The left ventricular ejection fraction is normal. Left Ventricular Filling pattern is normal for age. The left ventricular wall motion is mariia l. Right Ventricle The right ventricle is not well visualized. Atria Normal left and right atrial size and function. Mitral Valve There is mild mitral valve thickening. There is no mitral valve stenosis. There is mild mitral regurg itation. Tricuspid Valve There is mild tricuspid valve thickening. There is mild tricuspid regurgitation. Right ventricular sy stolic pressure is normal. Aortic Valve The aortic valve is not well visualized. No hemodynamically significant valvular aortic stenosis. No aortic regurgitation is present. Pulmonic Valve The pulmonic valve is not well visualized. Great Vessels The aortic root is normal size. Pericardium/Pleura There is no pericardial effusion. Interpretation Summary The left ventricular size, thickness and function are normal The left ventricular ejection fraction is normal. The left ventricular wall motion is normal. There is mild mitral regurgitation. There is mild tricuspid regurgitation. Right ventricular systolic pressure is normal. Left Ventricular Filling pattern is normal for age. MD Dudley Nguyen 12/13/2018 01:52 PM
--- NOTE | 2018-12-13 14:56 | PN ---
Teaching Attending Note Name of Resident: Abhijit Kelley ATTENDING PHYSICIAN STATEMENT I saw and evaluated the patient. I reviewed the resident's note and discussed the case with the resident. I agree with the resident's findings and plan as documented. SUBJECTIVE: No fever or chills. No MORAN . no CP at time of interview OBJECTIVE: NAD Cv: RRR Lungs:CTAB Ext : 1+ edema ASSESSMENT AND PLAN: 63 y/o lady with h/o HTn and obesity who experienced a in her family yesterday and presented with CP 1- CP: atypical description . likely due to emotional stress, but there is EKG changes compared to EKG form 03/18 ( new TW inversion in inferior leads and flat TW in lateral) . reports a neg stress test a year ago. - will obtain stress test report - will ask card to evaluate due to new EG changes - trop and echo reviewed. 2- LE edema, could be due to norvasc use. can address as out pt 3- HTN;; cont norvasc dispo : depends on card input
--- NOTE | 2018-12-13 17:32 | PN ---
Addendum entered and electronically signed by Sebastian Cardona, RESIDENT 17:57: low ASCVD score 6.7%, no need for statins at this time A1c 5.7 Original Note: Physical Exam: SUBJECTIVE: Patient seen and examined at bedside. no acute events. cp resolved. no complaints. denies fever, chills, cp, sob, n/v/d, urinary sxs OBJECTIVE: Vital Signs Period Temp Pulse Resp BP Sys/Castanon Pulse Ox Last 24 Hr 98.7 F 62 126/68 99 GENERAL: A&Ox3, NAD EYES: PERRLA, EOMI ENT: Moist mucus membranes NECK: No JVD LUNGS: CTA, no wheezes HEART: RRR, no murmurs ABDOMEN: Soft, NTND, BS present MUSCULOSKELETAL: No CVA Tenderness EXTREMITIES: 2+ pulses, 1+edema. NEUROLOGICAL: Cranial nerves II-XII intact. strength sensation grossly intact Laboratory Results - last 24 hr 12/12/18 12/12/18 12/12/18 16:53 16:53 16:53 WBC 7.7 RBC 4.47 Hgb 13.4 Hct 40.4 MCV 90.3 MCH 29.9 MCHC 33.2 RDW 13.6 Plt Count 252 MPV 8.8 Absolute Neuts (auto) 4.6 Neutrophils % 59.9 D Lymphocytes % 31.8 D Monocytes % 5.5 Eosinophils % 2.4 Basophils % 0.4 Nucleated RBC % 0 PT with INR 12.00 INR 1.02 PTT (Actin FS) 32.0 Sodium 137 Potassium 3.8 Chloride 104 Carbon Dioxide 24 Anion Gap 8 BUN 13 Creatinine 0.9 Est GFR (CKD-EPI)AfAm 78.87 Est GFR (CKD-EPI)NonAf 68.05 Random Glucose 89 Hemoglobin A1c % Calcium 9.5 Magnesium Total Bilirubin 0.6 AST 32 ALT 26 Alkaline Phosphatase 117 Troponin I < 0.02 B-Natriuretic Peptide 34.2 Total Protein 7.8 Albumin 4.1 Triglycerides Cholesterol Total LDL Cholesterol HDL Cholesterol 12/12/18 12/13/18 12/13/18 20:02 05:10 05:10 WBC 6.3 RBC 4.23 Hgb 12.6 Hct 38.0 MCV 89.9 MCH 29.8 MCHC 33.2 RDW 13.5 Plt Count 245 MPV 8.6 Absolute Neuts (auto) Neutrophils % Lymphocytes % Monocytes % Eosinophils % Basophils % Nucleated RBC % PT with INR INR PTT (Actin FS) Sodium 137 Potassium 3.9 Chloride 107 Carbon Dioxide 26 Anion Gap 4 L BUN 12 Creatinine 0.8 Est GFR (CKD-EPI)AfAm 90.94 Est GFR (CKD-EPI)NonAf 78.46 Random Glucose 92 Hemoglobin A1c % Calcium 9.1 Magnesium 2.4 Total Bilirubin AST ALT Alkaline Phosphatase Troponin I < 0.02 B-Natriuretic Peptide Total Protein Albumin Triglycerides 82 Cholesterol 187 Total LDL Cholesterol 99 HDL Cholesterol 71 H 12/13/18 05:10 WBC RBC Hgb Hct MCV MCH MCHC RDW Plt Count MPV Absolute Neuts (auto) Neutrophils % Lymphocytes % Monocytes % Eosinophils % Basophils % Nucleated RBC % PT with INR INR PTT (Actin FS) Sodium Potassium Chloride Carbon Dioxide Anion Gap BUN Creatinine Est GFR (CKD-EPI)AfAm Est GFR (CKD-EPI)NonAf Random Glucose Hemoglobin A1c % 5.7 Calcium Magnesium Total Bilirubin AST ALT Alkaline Phosphatase Troponin I B-Natriuretic Peptide Total Protein Albumin Triglycerides Cholesterol Total LDL Cholesterol HDL Cholesterol Active Medications Generic Name Dose Route Start Last Admin Trade Name Freq PRN Reason Stop Dose Admin Amlodipine Besylate 5 mg 12/12/18 23:30 12/13/18 10:42 Norvasc - PO 5 mg DAILY JASMIN Administration Aspirin 81 mg 12/13/18 10:00 12/13/18 10:41 Ecotrin - PO 81 mg DAILY JASMIN Administration ECHO Interpretation Summary The left ventricular size, thickness and function are normal The left ventricular ejection fraction is normal. The left ventricular wall motion is normal. There is mild mitral regurgitation. There is mild tricuspid regurgitation. Right ventricular systolic pressure is normal. Left Ventricular Filling pattern is normal for age. MD Dudley Nguyen 12/13/2018 01:52 PM CXR no acute pathology ASSESSMENT/PLAN: 63 yo F PMH HTN and obesity who experienced a in her family yesterday presented to ED for left sided chest pain #atypical Chest pain: likely psychosomatic due to trauma from losing her son, but will monitor to rule out acute coronary syndrome -cardiology consulted, Dr Brown -cardiac monitoring -EKG changes compared to EKG form 03/18 ( new TW inversion in inferior leads and flat TW in lateral) -echo reviewed above -troponins negative x2 -obtained echo and stress test report (11/2017) from pt Media Sales Executive . [facility]. echo noted w/ PAS 32mmHgand stress test nl. -will ask card to evaluate due to new EG changes #Hypertension: chronic -c/w amlodipine 5 #LE edema could be 2/2 norvasc use. f/u as out pt #FEN -no standing fluids -lytes normal -regular diet #Prophylaxis -early ambulation #Disposition -tele obs -possible dc, depends on card input Visit type - Emergency Visit Emergency Visit: Yes ED Registration Date: 12/12/18 Care time: The patient presented to the Emergency Department on the above date and was hospitalized for further evaluation of their emergent condition. - New Patient This patient is new to me today: Yes Date on this admission: 12/13/18 - Critical Care Critical Care patient: No
--- NOTE | 2018-12-13 19:12 | CON.CARD ---
Consult Consult Specialty:: Cardiology Referred by:: Dr. Grey Reason for Consultation:: Chest pain - History of Present Illness Chief Complaint: Chest pain History of Present Illness: 63 year old woman with a PMHx of hypertension presented to ED with chest pain. The patient developed chest pain and headache after finding out her son on the day of presentation. She states she took two aspirin prior to arrival. Describes pain as a chest pressure, similar to 1 year ago for which she had a stress test with her toll lineman in [place] that was reportedly negative. Her chest pain last almost all night and no recurrent chest pain today. Troponin negative. ECG showed non-specific inferior T wave changes. Echo was normal without wall motion abnormality. CXR normal. - History Source History Provided By: Patient, Medical Record Limitations to Obtaining History: No Limitations - Past Medical History Cardio/Vascular: Yes: HTN - Alcohol/Substance Use Hx Alcohol Use: No - Smoking History Smoking history: Never smoked Have you smoked in the past 12 months: No Aproximately how many cigarettes per day: 0 Home Medications - Allergies Allergies/Adverse Reactions: Allergies Allergy/AdvReac Type Severity Reaction Status Date / Time No Known Allergies Allergy Verified 12/12/18 15:40 - Home Medications Home Medications: Ambulatory Orders Amlodipine Besylate 5 mg PO DAILY 06/29/18 Review of Systems - Review of Systems Cardiovascular: reports: Chest Pain Neurological: reports: Headache Vital Signs: Vital Signs Temperature 98.4 F 12/13/18 18:21 Pulse Rate 61 12/13/18 18:21 Respiratory Rate 18 12/13/18 18:21 Blood Pressure 122/68 12/13/18 18:21 O2 Sat by Pulse Oximetry (%) 98 12/13/18 18:21 General: Well developed. Obese. No acute distress. Head: Normocephalic. Atraumatic, Eyes: PERRLA, EOMI. Sclerae anicteric. Conjunctivae clear. Neck: Supple. No JVD. No bruits. Heart: Normal S1, S2: Regular rhythm and rate. No murmur. No gallop or rub. Lungs: Symmetrical air entry. Clear to auscultation. No crackle. No wheezing or rhonchi. Abdomen: Soft. Bowel sound positive. Non tender. No masses. Extremities: No edema. No clubbing or cyanosis. PD 2+, equal bilaterally. Neuro: Intact, no focal findings. AAO X3. - Other Data Labs, Other Data: CBC, BMP 12/13/18 05:10 12/13/18 05:10 INR, PTT INR 1.02 (0.83-1.09) 12/12/18 16:53 Troponin, BNP 12/12/18 20:02 Troponin I < 0.02 Troponin, BNP 12/12/18 20:02 Troponin I < 0.02 Assessment/Plan 63 year old woman with a PMHx of hypertension presented to ED with chest pain. Troponin negative. ECG showed non-specific inferior T wave changes. Echo was normal without wall motion abnormality. CXR normal. Chest pain with risk factor of CAD and non-specific T wave changes in inferior leads. Regadenoson nuclear stress test for risk stratification. Continue amlodipine for BP control. We will follow.
[2018-12-14] MEDS: ASPIRIN COATED 81 MG TABLET.EC PO SCH (09:42)
[2018-12-14] MEDS: amLODIPine BESYLATE 5 MG TABLET (FP) PO SCH ×2 (09:42→16:21)
[2018-12-14] MEDS ORDERED: REGADENOSON 0.4 MG/5 ML PRE-FILLED SYRINGE IVPUSH ONE ×2 (09:45→10:23)
--- NOTE | 2018-12-14 14:24 | DS ---
Physical Exam: SUBJECTIVE: Patient seen and examined at bedside. no acute events. cp resolved. no complaints. denies fever, chills, cp, sob, n/v/d, urinary sxs OBJECTIVE: Vital Signs Period Temp Pulse Resp BP Sys/Castanon Pulse Ox Last 24 Hr 98.2 F-98.7 F 54-63 18-18 116-127/62-78 98-98 PHYSICAL EXAM GENERAL: A&Ox3, NAD EYES: PERRLA, EOMI ENT: Moist mucus membranes NECK: No JVD LUNGS: CTA, no wheezes HEART: RRR, no murmurs ABDOMEN: Soft, NTND, BS present MUSCULOSKELETAL: No CVA Tenderness EXTREMITIES: 2+ pulses, 1+edema. NEUROLOGICAL: Cranial nerves II-XII intact. strength sensation grossly intact LABS Laboratory Results - last 24 hr 12/13/18 12/13/18 05:10 05:10 Sodium 137 Potassium 3.9 Chloride 107 Carbon Dioxide 26 Anion Gap 4 L BUN 12 Creatinine 0.8 Est GFR (CKD-EPI)AfAm 90.94 Est GFR (CKD-EPI)NonAf 78.46 Random Glucose 92 Hemoglobin A1c % 5.7 Calcium 9.1 Magnesium 2.4 Creatine Kinase 486 H Creatine Kinase Index 0.2 CK-MB (CK-2) 1.1 Troponin I < 0.02 Triglycerides 82 Cholesterol 187 Total LDL Cholesterol 99 HDL Cholesterol 71 H HOSPITAL COURSE: Date of Admission:12/12/18 Date of Discharge: 12/14/18 ECHO Interpretation Summary The left ventricular size, thickness and function are normal The left ventricular ejection fraction is normal. The left ventricular wall motion is normal. There is mild mitral regurgitation. There is mild tricuspid regurgitation. Right ventricular systolic pressure is normal. Left Ventricular Filling pattern is normal for age. MD Dudley Nguyen 12/13/2018 01:52 PM CXR no acute pathology [id number] NM/G ANSLEY DENZEL 1 DAY* REASON FOR EXAM:chest pain MEDICATION:norvasc GATED STRESS EXERCISE MYOVIEW PERFUSION SCAN-1DAY PROTOCOL. DESCRIPTION OF TEST: Exercise stress testing was performed on a treadmill utilizing a Donovan Protocol. Blood pressure was recorded at frequent intervals from an arm cuff. Patient was injected with 13.3mCi Tc-99m MYOVIEW at rest and 33.2mCi Tc-99m MYOVIEW was injected at peak stress. Rest and stress images were acquired using a G.E. SPECT camera in the tomographic technique. Planar and tomographic images were acquired from an NOLAN to LPO degree completing a 180 degree arc. Images were reconstructed in the horizontal long, vertical long and short axis views. Left ventricular gated analysis was also performed. EXERCISE HEMODYNAMICS: Resting heart rate was 81bpm, and increased to 144bpm at peak exercise, [id number]% of the maximum predicted target heart rate. Resting blood pressure was 123/70mm/ hg and increased to 146/80mm/hg at peak exercise. Patient exercised for a total of 4 minutes, reaching Stage 2 of Donovan Protocol at a speed of 2.5mph and 12 elevation. The total workload achieved was 5.7 METS. Exercise was stopped due to knee pain. ELECTROCARDIOGRAPHIC FINDINGS:Baseline sr. No ischemic ecg changes or arrhythmias with exercise. No chest pain. GATED PERFUSION SCAN AND SPECT IMAGES:Apical thinning. No ischemia. Normal LV wall motion. LVEF 59%. FINAL CONCLUSION: EXERCISE RESULTS:Normal exercise stress ecg. NUCLEAR RESULTS:No ischemia. Normal LVEF. Reported By: Rikki Douglass MD 12/14/18 [id number] ASSESSMENT/PLAN: 63 yo F PMH HTN and obesity who experienced a in her family yesterday presented to ED for left sided chest pain #atypical Chest pain: likely psychosomatic due to trauma from losing her son. -cardiology consulted, Dr Brown -no events noted on cardiac monitoring -EKG changes compared to EKG form 03/18 ( new TW inversion in inferior leads and flat TW in lateral) -echo and stress test reviewed above. both nl -troponins negative x2 -obtained echo and stress test report (11/2017) from pt Warehouse Supervisor . [facility]. echo noted w/ PAS 32mmHgand stress test nl. -low ASCVD score 6.7%, no need for statins at this time -A1c 5.7 #Hypertension: chronic -c/w amlodipine 5mg at dc #LE edema could be 2/2 norvasc use. f/u as out pt #obesity - BMI 35.7 encourage weight loss pt stable and ready for dc w/ appropriate f/u Minutes to complete discharge: 39 Discharge Summary Reason For Visit: CHEST PAIN Current Active Problems Edema (Chronic) Condition: Stable - Instructions Diet, Activity, Other Instructions: you came in for chest pain. your echo and stress test were normal please resume your home meds please follow up with your primary care physician within 1 week please follow up with your workforce development program director or workforce development program director Dr Brown within 1 week to see if you need more tests to work up your chest pain as well as adjusting your blood pressure meds to help with your leg edema If you experience any worsening chest pain, shortness of breath, dizziness, please call 911 or go to the ER Referrals: Pillo Brown MD [Staff Physician] - 1 Week Disposition: HOME - Home Medications Comprehensive Discharge Medication List: Ambulatory Orders Amlodipine Besylate 5 mg PO DAILY 06/29/18 This patient is new to me today: Yes Date on this admission: 12/14/18 Emergency Visit: Yes ED Registration Date: 12/12/18 Care time: The patient presented to the Emergency Department on the above date and was hospitalized for further evaluation of their emergent condition. Critical Care patient: No - Discharge Referral Referred to [facility] No
--- NOTE | 2018-12-14 14:26 | PN ---
Teaching Attending Note Name of Resident: Sebastian Cardona ATTENDING PHYSICIAN STATEMENT I saw and evaluated the patient. I reviewed the resident's note and discussed the case with the resident. I agree with the resident's findings and plan as documented. SUBJECTIVE: no cp. OBJECTIVE: tearful. NAD Cv: RRR Lungs:CTAB Ext : 1+ edema ASSESSMENT AND PLAN: 63 y/o lady with h/o HTn and obesity who experienced a in her family yesterday and presented with CP 1- CP: atypical . no recurrence. stress test neg 2- LE edema, could be due to norvasc use. can address as out pt 3- HTN;; cont norvasc dispo : dc home . f/u with PCP and card
--- NOTE | 2018-12-14 15:04 | PN ---
Progress Note, Physician Chief Complaint: The patient appears comfortable without recurrent chest pain. History of Present Illness: 63 year old woman with a PMHx of hypertension admitted 12/13/18 with chest pain. The patient developed chest pain and headache after finding out her son on the day of presentation. She states she took two aspirin prior to arrival. Describes pain as a chest pressure, similar to 1 year ago for which she had a stress test with her fixed income analyst in [place] that was reportedly negative. Her chest pain last almost all night and no recurrent chest pain today. Troponin negative. ECG showed non-specific inferior T wave changes. Echo was normal without wall motion abnormality. CXR normal. Treadmill nuclear stress test 12/14/2018: Normal myocardial perfusion. - Current Medication List Current Medications: Active Medications Amlodipine Besylate (Norvasc -) 5 mg PO DAILY [facility] Last Admin: 12/14/18 09:42 Dose: Not Given Aspirin (Ecotrin -) 81 mg PO DAILY [facility] Last Admin: 12/14/18 09:42 Dose: Not Given - Objective Vital Signs: Vital Signs Temperature 98.7 F 12/14/18 08:27 Pulse Rate 63 12/14/18 08:27 Respiratory Rate 18 12/14/18 08:27 Blood Pressure 127/68 12/14/18 08:27 O2 Sat by Pulse Oximetry (%) 98 12/14/18 08:24 General: Well developed. Obese. No acute distress. Head: Normocephalic. Atraumatic, Eyes: PERRLA, EOMI. Sclerae anicteric. Conjunctivae clear. Neck: Supple. No JVD. No bruits. Heart: Normal S1, S2: Regular rhythm and rate. No murmur. No gallop or rub. Lungs: Symmetrical air entry. Clear to auscultation. No crackle. No wheezing or rhonchi. Abdomen: Soft. Bowel sound positive. Non tender. No masses. Extremities: No edema. No clubbing or cyanosis. PD 2+, equal bilaterally. Neuro: Intact, no focal findings. AAO X3. Labs: CBC, BMP 12/13/18 05:10 12/13/18 05:10 INR, PTT INR 1.02 (0.83-1.09) 12/12/18 16:53 Assessment/Plan 63 year old woman with a PMHx of hypertension admitted 12/13/18 with chest pain. Troponin negative. ECG showed non-specific inferior T wave changes. Echo was normal without wall motion abnormality. CXR normal. Treadmill nuclear stress test 12/14/2018: Normal myocardial perfusion. Chest pain with risk factor of CAD and non-specific T wave changes in inferior leads. The patient has normal cardiac function and normal myocardial perfusion. Continue amlodipine for BP control. She can be discharged today.
[2018-12-14 15:21] VITALS: BP 126/68; PULSE 68; TEMP 98.6
== END 2018-12-14 17:59 | disposition home or self-care (01) | DRG 313 ==
LOC: JER 15:36 → JERBED 20:10 → J4W 12-13 18:45
PROVIDERS: ADMIT Internal Medicine; ATTEND Internal Medicine
DX: R07.89 Other chest pain (principal); I10 Essential (primary) hypertension; E07.9 Disorder of thyroid, unspecified; E66.9 Obesity, unspecified; Z68.35 Body mass index [BMI] 35.0-35.9, adult; F45.9 Somatoform disorder, unspecified
CPT/HCPCS: 36415; 71045-TC-FY; 71046-TC-FY; 78452-TC; 80048; 80053; 80061; 82550; 82553; 83036; 83721; 83735; 83880; 84484; 85025; 85027; 85610; 85730; 93005; 93010; 93017; 93306-TC; 99285-25; A9502; J2785

== ENCOUNTER 2019-05-02 23:35 | Emergency (ER) | payer OTHER ==
[2019-05-02 23:41] VITALS: BMI 34.2
--- NOTE | 2019-05-03 01:37 | PDOC ---
History of Present Illness - General Chief Complaint: Edema Stated Complaint: SWOLLEN LEG Time Seen by Provider: 05/03/19 01:09 History Source: Patient Exam Limitations: No Limitations - History of Present Illness Initial Comments: 05/03/19 01:33 This is a 63 year old female with PMH significant for HTN. She presents to the ER with complaints of chest pain and B/L lower extremity edema since earlier today. 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 The pain was diffuse, sudden on onset, 5-6/10 in intensity, dull in quality, constant in nature, non-radiating, and aggravated by deep breaths. The leg edema also began earlier today, worse on the left side. She has had B/L edema in the past as well. She has no nausea, vomiting, fevers, chill, no recent medication changes, no trauma, and no recent illnesses. Past History - Travel Traveled outside of the country in the last 30 days: No Close contact w/someone who was outside of country & ill: No - Past Medical History Allergies/Adverse Reactions: Allergies Allergy/AdvReac Type Severity Reaction Status Date / Time No Known Allergies Allergy Verified 05/02/19 23:41 Home Medications: Ambulatory Orders Amlodipine Besylate [Norvasc -] 5 mg PO DAILY 30 Days #30 tablet 12/14/18 COPD: No HTN: Yes Thyroid Disease: Yes - Surgical History Appendectomy: Yes - Immunization History Immunization Up to Date: Yes - Psycho Social/Smoking Cessation Hx Smoking Status: No Smoking History: Never smoked Have you smoked in the past 12 months: No Number of Cigarettes Smoked Daily: 0 Information on smoking cessation initiated: No Hx Alcohol Use: No Drug/Substance Use Hx: No Substance Use Type: None Review of Systems - Review of Systems Able to Perform ROS?: Yes Is the patient limited Citizen [place] proficient: No Constitutional: No: Symptoms Reported, See HPI, Chills, Diaphoresis, Fever, Loss of Appetite, Malaise, Night Sweats, Weakness, Weight Stable, Unintentional Wgt. Loss, Unexplained wgt Loss, Other HEENTM: No: Symptoms Reported, See HPI, Eye Pain, Blurred Vision, Tearing, Recent change in vision, Double Vision, Cataracts, Ear Pain, Ocular Prothesis, Ear Discharge, Nose Pain, Nose Congestion, Tinnitus, Nose Bleeding, Hearing Loss , Throat Pain, Throat Swelling, Mouth Pain, Dental Problems, Difficulty Swallowing, Mouth Swelling, Other Respiratory: No: Symptoms reported, See HPI, Cough, Orthopnea, Shortness of Breath, SOB with Exertion, SOB at Rest, Stridor, Wheezing, Productive cough, Hemoptysis, Other Cardiac (ROS): Yes: Chest Pain ABD/GI: No: Symptoms Reported, See HPI, Abdominal Distended, Abd. Pain w/ defecation, Blood Streaked Bowels, Constipated, Diarrhea, Difficulty Swallowing , Nausea, Poor Appetite, Poor Fluid Intake, Rectal Bleeding, Vomiting, Indigestion, Abdominal cramping, Tarry Stools, Other : No: Symptoms Reported, See HPI, Burning, Dysuria, Discharge, Frequency, Flank Pain, Hematuria, Incontinence, Pain, Urgency, Testicular Mass, Testicular Swelling, Lesions, Testicular Pain, Other Musculoskeletal: No: Symptoms Reported, See HPI, Back Pain, Gout, Joint Pain, Joint Swelling, Muscle Pain, Muscle Weakness, Neck Pain, Joint Stiffness, Other *Physical Exam - Vital Signs Last Vital Signs Temp Pulse Resp BP Pulse Ox 98.6 F 68 18 137/70 100 05/02/19 23:39 05/02/19 23:39 05/02/19 23:39 05/02/19 23:39 05/02/19 23:39 - Physical Exam General Appearance: Yes: Appropriately Dressed, Obese HEENT: positive: RYAN, Normal ENT Inspection, Normal Voice, Symmetrical, TMs Normal, Pharynx Normal Neck: positive: Trachea midline, Normal Thyroid, Supple Respiratory/Chest: positive: Lungs Clear, Normal Breath Sounds. negative: Chest Tender, Respiratory Distress, Accessory Muscle Use, Labored Respiration, Rapid RR, Decreased Breath Sounds, Paradoxal Breathing, Crackles, Rales, Rhonchi , Stridor, Wheezing, Hyperresonant, Dullness, Plerual Rub, Other Cardiovascular: positive: Regular Rhythm, Regular Rate. negative: S1, S2, Edema , JVD, Murmur, Bradycardia, Tachycardia, Diastolic Murmur, Systolic Murmur, Gallop/S3, Gallop/S4, Irregularly Irregular, Irregular, Other Gastrointestinal/Abdominal: positive: Normal Bowel Sounds, Soft Extremity: positive: Swelling Neurologic: positive: secondary education professor II-XII NML intact, Fully Oriented, Motor Strength 5/ 5. negative: Alert, Normal Mood/Affect, Normal Response, Abnormal Cranial NS, Respond to painful stimul, Responsive, EOM Palsy, Facial Droop, Numbness, Sensory Deficit, Finger to Nose, Confused, Disoriented, Depressed Affect, Babinski, Other Heart Score/ECG Review - Electrocardiogram EKG: Normal - Age Age: 45-65 - Risk Factors Risk Factors Heart Score: Yes Hx Hypertension, Yes Positive family hx of cardiac disease Based on the list above the patient has:: 1-2 risk factors - Troponin Troponin: </= normal limit - ECG Intrepretation Rhythm: Regular Rhythm ED Treatment Course - LABORATORY CBC & Chemistry Diagram: 05/03/19 02:25 05/03/19 02:25 Medical Decision Making - Medical Decision Making 05/03/19 01:48 - EKG, Trops - CBC, CMP - UA - CXR - BNP - Lower extremity US 05/03/19 03:38 - CT AP ordered - Lower extremity US negative for DVT - Trops and BNP normal 05/03/19 04:49 - CT AP: pelvic lymphadenopathy, uterus is enlarged with fibroids vs latency - TV ultrasound in AM Discharge - Discharge Information Problems reviewed: Yes Clinical Impression/Diagnosis: Edema Condition: Guarded - Follow up/Referral Referrals: Shola Clark MD [Primary Care Provider] - - Patient Discharge Instructions - Post Discharge Activity
[2019-05-03 02:34] LABS: BASO % 1.5 % (0-2.0); EOS % 7.3 % (0-4.5); HEMATOCRIT 38.5 % (32.4-45.2); HEMOGLOBIN 12.8 GM/dL (10.7-15.3); LYMPH % 40.3 % (8-40); MCH 30.1 pg (25.7-33.7); MCHC 33.4 g/dl (32.0-36.0); MEAN CELL VOLUME 90.2 fl (80-96); MEAN PLT VOLUME 8.8 fl (7.5-11.1); MONO % 6.1 % (3.8-10.2); NEUT % 44.8 % (42.8-82.8); PLATELET COUNT 219 K/MM3 (134-434); RBC 4.27 M/mm3 (3.60-5.2); WHITE BLOOD COUNT 6.6 K/mm3 (4.0-10.0)
[2019-05-03 02:46] LABS: INR 0.99 (0.83-1.09); PROTHROMBIN TIME (PATIENT) 11.7 SEC (9.7-13.0)
[2019-05-03 02:56] LABS: URINE APPEARANCE CLEAR; URINE BILIRUBIN NEGATIVE (NEGATIVE); URINE COLOR YELLOW; URINE GLUCOSE (UA) NEGATIVE (NEGATIVE); URINE KETONE NEGATIVE (NEGATIVE); URINE LEUK ESTERASE NEGATIVE (NEGATIVE); URINE NITRITE NEGATIVE (NEGATIVE); URINE PROTEIN NEGATIVE (NEGATIVE); URINE UROBILINOGEN 0.2 mg/dL (0.2-1.0)
[2019-05-03 03:01] LABS: ALBUMIN 3.6 g/dl (3.4-5.0); BILIRUBIN,TOTAL 0.4 mg/dL (0.2-1); TOT PROT 7.1 g/dl (6.4-8.2)
--- NOTE | 2019-05-03 04:41 | PDOC ---
Attending Attestation - Resident Resident Name: Carly Thomas - ED Attending Attestation I have performed the following: I have examined & evaluated the patient, The case was reviewed & discussed with the resident, I agree w/resident's findings & plan - HPI HPI: 05/03/19 04:27 see resident hpi - Physicial Exam PE: 05/03/19 04:27 agree with resident exam - Medical Decision Making 05/03/19 04:27 63-year-old female with bilateral lower extremity edema x2 days as well as pressure to the low back Lower extremity duplex was negative for DVT Kidney function is within normal limits, troponin and BNP are within normal limits CT scan nshows pelvic lymphadenopathy, uterus is enlarged with fibroids versus latency Patient will require close TOBY MAKER follow-up and ultrasound
[2019-05-03 06:02] VITALS: TEMP 98.3
[2019-05-03] MEDS ORDERED: SODIUM CHLORIDE 0.9% 500 ML INFUS.BAG IV ONE (07:15)
--- NOTE | 2019-05-03 07:19 | PDOC ---
*Physical Exam - Vital Signs Last Vital Signs Temp Pulse Resp BP Pulse Ox 98.3 F 58 L 19 133/71 99 05/03/19 06:01 05/03/19 06:01 05/03/19 06:01 05/03/19 06:01 05/03/19 06:01 - Physical Exam General Appearance: Yes: Nourished, Appropriately Dressed. No: Apparent Distress, Alcohol on Breath HEENT: positive: Normal ENT Inspection, Normal Voice Neck: positive: Supple Respiratory/Chest: positive: Lungs Clear, Normal Breath Sounds. negative: Respiratory Distress Cardiovascular: positive: Regular Rhythm, Regular Rate, S1, S2 Vascular Pulses: Dorsalis-Pedis (R): 2+, Doralis-Pedis (L): 2+ Gastrointestinal/Abdominal: positive: Normal Bowel Sounds, Soft. negative: Tender Rectal Exam: positive: deferred Musculoskeletal: positive: Normal Inspection. negative: CVA Tenderness Extremity: positive: Normal Capillary Refill, Normal Inspection, Normal Range of Motion, Pelvis Stable, Pedal Edema (1+) Integumentary: positive: Normal Color, Dry, Warm Neurologic: positive: Fully Oriented, Alert, Normal Mood/Affect, Normal Response , Motor Strength 5/5 ED Treatment Course - LABORATORY CBC & Chemistry Diagram: 05/03/19 02:25 05/03/19 02:25 - ADDITIONAL ORDERS Additional order review: Laboratory Results 05/03/19 05/03/19 05/03/19 02:30 02:25 02:25 PT with INR INR Sodium 140 Potassium 4.0 Chloride 107 Carbon Dioxide 26 Anion Gap 7 L BUN 19.0 H Creatinine 1.0 Est GFR (CKD-EPI)AfAm 69.44 Est GFR (CKD-EPI)NonAf 59.91 Random Glucose 100 Calcium 9.0 Total Bilirubin 0.4 AST 22 ALT 25 Alkaline Phosphatase 126 H Creatine Kinase Creatine Kinase Index CK-MB (CK-2) Troponin I B-Natriuretic Peptide 19.7 Total Protein 7.1 Albumin 3.6 Urine Color Yellow Urine Appearance Clear Urine pH 7.0 D Ur Specific [place] 1.006 L Urine Protein Negative Urine Glucose (UA) Negative Urine Ketones Negative Urine Blood Negative Urine Nitrite Negative Urine Bilirubin Negative Urine Urobilinogen 0.2 Ur Leukocyte Esterase Negative 05/03/19 05/03/19 02:25 02:25 PT with INR 11.70 INR 0.99 Sodium Potassium Chloride Carbon Dioxide Anion Gap BUN Creatinine Est GFR (CKD-EPI)AfAm Est GFR (CKD-EPI)NonAf Random Glucose Calcium Total Bilirubin AST ALT Alkaline Phosphatase Creatine Kinase 284 H Creatine Kinase Index No Result Required. CK-MB (CK-2) < 1.0 Troponin I < 0.02 B-Natriuretic Peptide Total Protein Albumin Urine Color Urine Appearance Urine pH Ur Specific [place] Urine Protein Urine Glucose (UA) Urine Ketones Urine Blood Urine Nitrite Urine Bilirubin Urine Urobilinogen Ur Leukocyte Esterase 05/03/19 02:25 RBC 4.27 MCV 90.2 MCHC 33.4 RDW 14.0 MPV 8.8 Neutrophils % 44.8 D Lymphocytes % 40.3 H D Monocytes % 6.1 Eosinophils % 7.3 H D Basophils % 1.5 D - RADIOLOGY Radiology Studies Ordered: Category Date Time Status TRANSVAGINAL ULTRASOUND US [US] Stat Ultrasound 05/03/19 07:10 Ordered Radiograph Interpretation: CXR: Chest pain. Chest. 2 views. Comparison study December 12, 2018. Midline trachea no evidence of widening of the superior mediastinum. Uncoiled thoracic aorta. The heart is borderline enlarged. The lungs are well aerated without evidence of pulmonary infiltrates, atelectasis. No evidence of bulky hilar adenopathy. No evidence of blunting of the costophrenic angles. No pneumothorax, large pleural effusion is seen. No evidence of vascular congestive changes, pulmonary edema. Thoracic spine degenerative changes. The visualized osseous structures appear intact. Mild dextroscoliosis. Impression. No evidence of active pulmonary disease. CTAP: EXAM: CT ABDOMEN without contrast and CT PELVIS W/O CONTR HISTORY: 63-Year-Old Female With Flank Pain. COMPARISON: None. FINDINGS: Lack of intravenous contrast limits this exam. Lack of oral contrast limits this exam. Right lower lobe calcified granuloma. Calcified granulomas in the liver. Cholelithiasis with moderate gallbladder distention most likely associated with gallbladder dysmotility may be associated with chronic cholecystitis. Noncontrast evaluation pancreas spleen adrenal glands kidneys appear unremarkable. No nephrolithiasis or hydronephrosis. Noncontrast evaluation stomach small bowel appear unremarkable. Appendix is not identified. Diverticulosis. No diverticulitis. Heterogeneous nonspecific enlarged uterus may be due to fundal uterine fibroids and other masses in the uterus including malignancy cannot be excluded. Bladder appears unremarkable. No free air. No free fluid. No abscess. Moderate to severe degenerative disc disease and degenerative joint disease of the facets in the lower lumbar spine. Moderate to severe spinal canal narrowing and neural foraminal narrowing in the lower lumbar levels. Borderline mesenteric lymphadenopathy on coronal image 81 may be due to mesenteric adenitis and causes of lymphadenopathy cannot be excluded. IMPRESSION: Cholelithiasis with moderate gallbladder distention most likely associated with gallbladder dysmotility may be associated with chronic cholecystitis. If clinically indicated follow-up Outpatient [facility] Hepatobiliary Scan With a Slow 10 Minute Cholecystokinin Injection Gallbladder Ejection Fraction Calculation may be needed. Diverticulosis without diverticulitis. Heterogeneous nonspecific enlarged uterus may be due to fundal uterine fibroids and other masses in the uterus including malignancy cannot be excluded. If clinically indicated follow-up [facility] consultation may be needed Borderline mesenteric lymphadenopathy on coronal image 81 may be due to mesenteric adenitis and other causes of lymphadenopathy cannot be excluded. If clinically indicated follow-up outpatient evaluation may be needed. This CT exam was performed using one or more of the following dose reduction techniques: automated exposure control, adjustment of the mA and/or kV according to patient size, use of iterative reconstruction technique. TVUS: Rule out malignancy Pelvis ultrasound, transvaginal LMP: 3-4 years ago. Initial transabdominal images of the pelvis were obtained followed with a transvaginal ultrasound Uterus measures 7 x 5 cm in sagittal and AP dimension. Endometrial stripe measures 5 mm in thickness. There is a hypoechoic anterior myometrial mass measuring 1.9 x 1.7 cm and a hypoechoic posterior myometrial mass measuring 3.6 x 2.7 cm suggestive of fibroids. A third right lateral myometrial mass is present that is partially exophytic measuring 4.6 x 2.4 cm compatible with a fibroid. Normal-appearing right ovary measuring 2.1 x 1.2 cm with normal vascular flow. Left ovary was not visualized. There is no free fluid in the cul- de-sac IMPRESSION: Fibroid uterus, as described above with the largest fibroid/ mass measuring 4.6 x 2.4 cm. Normal thickness of the endometrial stripe measuring 5 mm a Normal appearing right ovary with normal vascular flow. Left ovary was not visualized Medical Decision Making - Medical Decision Making Received patient as a sign out from the night team pending TVUS to r/o malignancy as there was concern based on the CTAP CTAP results - documented in note Nini Quan is a 63 yo F w a pmh of HTN who presented to the ER for b/l lower extremity swelling. - Patient takes amlodipine - Will obtain TVUS - Patient denies having any chest pain, SOB or difficulty breathing. - Wells score zero Plan: TVUS, Dispo TVUS: Rule out malignancy Pelvis ultrasound, transvaginal LMP: 3-4 years ago. Initial transabdominal images of the pelvis were obtained followed with a transvaginal ultrasound Uterus measures 7 x 5 cm in sagittal and AP dimension. Endometrial stripe measures 5 mm in thickness. There is a hypoechoic anterior myometrial mass measuring 1.9 x 1.7 cm and a hypoechoic posterior myometrial mass measuring 3.6 x 2.7 cm suggestive of fibroids. A third right lateral myometrial mass is present that is partially exophytic measuring 4.6 x 2.4 cm compatible with a fibroid. Normal-appearing right ovary measuring 2.1 x 1.2 cm with normal vascular flow. Left ovary was not visualized. There is no free fluid in the cul- de-sac IMPRESSION: Fibroid uterus, as described above with the largest fibroid/ mass measuring 4.6 x 2.4 cm. Normal thickness of the endometrial stripe measuring 5 mm a Normal appearing right ovary with normal vascular flow. Left ovary was not visualized Disposition: Home with OB Fu - Patient was givem copies of her CT and US reports and instructed to follow up with her OB doc regarding the results. - I provided the patient with multiple OB doctors to call and schedule an appointment with. Discharge - Discharge Information Problems reviewed: Yes Clinical Impression/Diagnosis: Edema Qualifiers: Edema type: localized Qualified Code(s): R60.0 - Localized edema Condition: Guarded Disposition: HOME - Admission No - Follow up/Referral Referrals: Shola Clark MD [Primary Care Provider] - Timmy Ambrosio MD [Staff Physician] - Linh Sunshine MD [Staff Physician] - Rossana Pereira MD [Staff Physician] - - Patient Discharge Instructions Patient Printed Discharge Instructions: Edema (Alternative Therapy), DI for Dependent Edema, DI for Peripheral Edema -- Bilateral Additional Instructions: Please make sure to follow up with your OB doctor in the next 2 weeks. Come back to the ER immediately if your pain worsens, you have chest pain, become short of breath, or have any other new or worsening concerns. Thank you for coming to the [facility] ER. We hope you feel better soon! Print Language: LAO - Post Discharge Activity
[2019-05-03 10:48] VITALS: BP 118/69; PULSE 64
--- NOTE | 2019-05-03 14:36 | EKG ---
Test Reason : Blood Pressure : / mmHG Vent. Rate : 059 BPM Atrial Rate : 059 BPM P-R Int : 158 ms QRS Dur : 082 ms QT Int : 420 ms P-R-T Axes : 025 -04 016 degrees QTc Int : 415 ms SINUS BRADYCARDIA MINIMAL VOLTAGE CRITERIA FOR LVH, MAY BE NORMAL VARIANT POSSIBLE ANTERIOR INFARCT , AGE UNDETERMINED ABNORMAL ECG WHEN COMPARED WITH ECG OF 02-MAY-2019 23:48, BORDERLINE CRITERIA FOR ANTERIOR INFARCT ARE NOW PRESENT NO SIGNIFICANT CHANGE WAS FOUND Confirmed by MONE PATEL MD ([id number]) on 05/03/2019 2:36:05 PM Referred By: Confirmed By:MONE PATEL MD
--- NOTE | 2019-05-03 14:37 | EKG ---
Test Reason : Blood Pressure : / mmHG Vent. Rate : 067 BPM Atrial Rate : 067 BPM P-R Int : 152 ms QRS Dur : 084 ms QT Int : 400 ms P-R-T Axes : 054 004 029 degrees QTc Int : 422 ms POOR DATA QUALITY, INTERPRETATION MAY BE ADVERSELY AFFECTED NORMAL SINUS RHYTHM INFERIOR INFARCT , AGE UNDETERMINED ABNORMAL ECG WHEN COMPARED WITH ECG OF 12-DEC-2018 16:04, NONSPECIFIC T WAVE ABNORMALITY HAS REPLACED INVERTED T WAVES IN INFERIOR LEADS NONSPECIFIC T WAVE ABNORMALITY, IMPROVED IN ANTERIOR LEADS Confirmed by MONE PATEL MD ([id number]) on 05/03/2019 2:37:00 PM Referred By: Confirmed By:MONE PATEL MD
== END 2019-05-03 11:00 | disposition home or self-care (01) ==
LOC: JER 23:35
DX: M79.89 Other specified soft tissue disorders (principal); I10 Essential (primary) hypertension; E07.9 Disorder of thyroid, unspecified
CPT/HCPCS: 36415; 71046-TC-FY; 74176-TC; 76830-TC; 80053; 81003; 82550; 82553; 83880; 84484; 85025; 85610; 93005; 93010; 93970-TC; 99284-25

== ENCOUNTER 2022-06-17 04:19 | Day surgery (SDC) | payer OTHER ==
[2022-06-16 16:17] VITALS: BMI 33.5
[~2022-06-17 04:19] MED LIST: BSS (NA/CA/MG/K) BALANCED SALT SOLUTION OPHTH SOLN 15 ML BOTTLE OD ONE; CHONDROITIN SU A/HYALUR SOD 1 KIT IO ONE; EPINEPHrine/PF 1 MG/1 ML (1:1,000) AMPULE SQ ONE; LIDOCAINE 1% P/F 10 MG/ML VIAL PNB ONE; POVIDONE-IODINE 5% OPHTHALMIC PREP 30 ML SOLUTION OD ONE; TETRACAINE 0.5% OPHTH SOLN 2 ML BOTTLE OD ONE; TOBRAMYCIN/DEXAMETHASONE OPHTH. OINTMENT 1 TUBE OD ONE
[2022-06-17] MEDS ORDERED: TROPICAMIDE 1% OPHTH SOLN 15 ML BOTTLE ONE (06:13)
[2022-06-17] MEDS ORDERED: DICLOFENAC SODIUM 0.1% OPHTHALMIC 2.5ML BOTTLE ONE (06:13)
[2022-06-17] MEDS ORDERED: PHENYLEPHRINE 2.5% OPHTH SOLN 15 ML BOTTLE ONE (06:13)
[2022-06-17] MEDS ORDERED: CIPROFLOXACIN HCL 0.3% OPHTH 2.5ML BOTTLE ONE (06:13)
[2022-06-17 06:22] VITALS: RESP 18
[2022-06-17] MEDS ORDERED: MIDAZOLAM HCL 2 MG/2 ML SINGLE DOSE VIAL ONE (06:50)
[2022-06-17] MEDS ORDERED: PROPOFOL 20 ML ONE (06:54)
[2022-06-17] MEDS ORDERED: TOBRAMYCIN/DEXAMETHASONE OPHTH. OINTMENT 1 TUBE ONE (07:04)
[2022-06-17] MEDS ORDERED: LIDOCAINE HCL/PF 1% SDV 5ML VIAL ONE (07:04)
[2022-06-17] MEDS ORDERED: TETRACAINE 0.5% OPHTH SOLN 2 ML BOTTLE ONE (07:04)
[2022-06-17] MEDS ORDERED: POVIDONE-IODINE 5% OPHTHALMIC PREP 30 ML SOLUTION ONE (07:05)
[2022-06-17] MEDS ORDERED: ACETAMINOPHEN 325 MG TABLET (FP) PO PRN (07:24)
[2022-06-17] MEDS ORDERED: CIPROFLOXACIN HCL 0.3% OPHTH 2.5ML BOTTLE OP SCH (07:30)
[2022-06-17] MEDS ORDERED: DICLOFENAC SODIUM 0.1% OPHTHALMIC 2.5ML BOTTLE OP SCH (07:30)
[2022-06-17] MEDS ORDERED: TROPICAMIDE 1% OPHTH SOLN 15 ML BOTTLE OP SCH (07:30)
[2022-06-17] MEDS ORDERED: PHENYLEPHRINE 2.5% OPHTH SOLN 15 ML BOTTLE OP SCH (07:30)
[2022-06-17] MEDS ORDERED: TETRACAINE 0.5% OPHTH SOLN 2 ML BOTTLE OD ONE (07:40)
[2022-06-17] MEDS ORDERED: POVIDONE-IODINE 5% OPHTHALMIC PREP 30 ML SOLUTION OD ONE (07:44)
[2022-06-17] MEDS ORDERED: BSS (NA/CA/MG/K) BALANCED SALT SOLUTION OPHTH SOLN 15 ML BOTTLE OD ONE (07:50)
[2022-06-17] MEDS ORDERED: LIDOCAINE 1% P/F 10 MG/ML VIAL PNB ONE (07:52)
[2022-06-17] MEDS ORDERED: CHONDROITIN SU A/HYALUR SOD 1 KIT IO ONE (07:53)
[2022-06-17] MEDS ORDERED: EPINEPHrine/PF 1 MG/1 ML (1:1,000) AMPULE SQ ONE ×2 (07:55→07:59)
[2022-06-17] MEDS ORDERED: TRYPAN BLUE 0.5 ML DISP.SYRIN IO ONE (07:56)
[2022-06-17] MEDS ORDERED: TOBRAMYCIN/DEXAMETHASONE OPHTH. OINTMENT 1 TUBE OD ONE (08:15)
[2022-06-17 08:57] VITALS: BP 124/73; PULSE 73; TEMP 98.5
== END 2022-06-17 09:10 | disposition home or self-care (01) ==
LOC: JASU-SURG 04:19
PROVIDERS: ATTEND Ophthalmology
PROC: 08RJ3JZ Replacement of Right Lens with Synthetic Substitute, Percutaneous Approach (ICD-10-PCS; principal; 2022-06-17 07:30)
DX: H26.9 Unspecified cataract (principal)
CPT/HCPCS: V2632